=== PATIENT | male | born 1940 | race Caucasian/White ===

== ENCOUNTER 2018-05-09 17:00 | Outpatient (REF) | payer MEDICARE, OTHER, SELFPAY ==
[2018-05-09 18:31] LABS: HCT 44.1 % (40.0-50.0); HGB 15.1 g/dL (13.5-17.5)
[2018-05-09 18:50] LABS: Hemoglobin A1C 8.2 % (4.5-6.2)
[2018-05-09 18:51] LABS: ALT 25 U/L (12-78); AST 12 U/L (15-37); Albumin 3.9 g/dL (3.4-5.0); Alkaline Phosphatase 92 U/L (46-116); Anion Gap 5.2 mmol/L (3-11); BUN 20 mg/dL (7-18); Bilirubin, Total 0.2 mg/dL (0.2-1.0); C-Reactive Protein 0.46 mg/dL (0.0-0.3); CO2 29.8 mmol/L (21.0-32.0); CREATININE 1.19 mg/dL (0.70-1.30); Calcium 8.8 mg/dL (8.5-10.1); Chloride 100 mmol/L (98-107); Creatine Kinase 194 U/L (39-308); Estimated GFR 59.12 (mL/min/1.73m2); Glucose 152 mg/dL (70-100); Magnesium 1.7 mg/dL (1.8-2.4); NT-proBNP 96 pg/mL; Potassium 4.2 mmol/L (3.5-5.1); Sodium 135 mmol/L (136-145); Total Protein 7.4 g/dL (6.4-8.2)
[2018-05-09 19:09] LABS: Cholesterol 143 mg/dL (50-200); HDL Cholesterol 39 mg/dL (40-60); LDL CHOLESTEROL 81 mg/dL (<100); Triglyceride 165 mg/dL (30-150)
== END 2018-05-09 17:01 ==
LOC: NCHCN 17:00
PROVIDERS: PCP Family Medicine; Visit Provider Family Medicine
DX: E11.9 Type 2 diabetes mellitus without complications (principal); R06.09 Other forms of dyspnea; E78.5 Hyperlipidemia, unspecified; I10 Essential (primary) hypertension; R60.0 Localized edema; R07.89 Other chest pain
CPT/HCPCS: 80053; 80061; 82550; 83721; 83036; 83735; 83880; 85014; 85018; 86140

== ENCOUNTER 2018-06-17 01:18 | Outpatient (CLI) | payer MEDICARE, OTHER, SELFPAY ==
--- NOTE | 2018-06-17 07:39 | DI.US_ITS ---
SYMPTOMS/DIAGNOSIS: SMOKER, F17.210, HYPERTENSION, ? AAA ABDOMINAL AORTIC ULTRASOUND: Sonographic evaluation of the abdominal aorta was performed. There is no evidence of an abdominal aortic aneurysm. Maximum diameter of the abdominal aorta is seen proximally and measures 2.9 cm. IMPRESSION: No evidence of an abdominal aortic aneurysm.
== END 2018-06-17 01:38 ==
PROVIDERS: PCP Family Medicine; Visit Provider Family Medicine
DX: F17.210 Nicotine dependence, cigarettes, uncomplicated (principal); I10 Essential (primary) hypertension; Z13.6 Encounter for screening for cardiovascular disorders
CPT/HCPCS: 76706

== ENCOUNTER 2018-06-20 00:28 | Outpatient (CLI) | payer MEDICARE, OTHER, SELFPAY ==
--- NOTE | 2018-06-20 09:40 | MERGE_ITS ---
*[facility]* *[facility]* [address] [place] [address] Date of study: 06/20/2018 Transthoracic Echocardiography M-mode, complete 2D, complete spectral Doppler, and color Doppler *STUDY CONCLUSIONS* Summary: 1. Left ventricle: The cavity size was normal. Wall thickness was increased in a pattern of mild LVH. Systolic function was at the lower limits of normal. The estimated ejection fraction was 50-55%. Wall motion was normal; there were no regional wall motion abnormalities. 2. Mitral valve: There was mild regurgitation. 3. Left atrium: The atrium was mildly dilated. 4. Right ventricle: The cavity size was normal. Wall thickness was normal. Systolic function was normal. 5. Pulmonary arteries: Pulmonary systolic pressure was at the upper limits of normal. PA peak pressure: 31mm Hg (S). *PATIENT PRESENTATION* Height: 172.7cm ((68in) ) S/D Pressure: 135 / 66 Weight: 86.2kg ((189.6lb) ) BSA: 2.05m^2 Test start time: 09:50 AM. Test stop time: 10:37 AM. ORDERING Yasmin Hilliard REFERRING Yasmin Hilliard PERFORMING Unknown PERFORMING [facility] PARALEGAL RT Stephanie (R)(CHARLIE), CARLOS *PROCEDURE DATA* Procedure information: The patient was identified by two identifiers. This study was interpreted by [facility]. Pertinent images and digital data are archived for permanent storage and are available for subsequent review. No prior study was available for comparison. Study status: Routine. Transthoracic echocardiography. M-mode, complete 2D, complete spectral Doppler, and color Doppler. A Transthoracic Echocardiogram was performed. Scanning was performed from the parasternal, apical, subcostal, and suprasternal notch acoustic windows. Images were obtained using an [id number] cardiac ultrasound machine. Image quality was adequate. Study completion: The patient tolerated the procedure well. History: PMH: DUCKWORTH, lower limb edema, chest discomfort. *CARDIAC ANATOMY* Left ventricle: The cavity size was normal. Wall thickness was increased in a pattern of mild LVH. Systolic function was at the lower limits of normal. The estimated ejection fraction was 50-55%. Wall motion was normal; there were no regional wall motion abnormalities. Some parameters suggest diastolic dysfunction. Aortic valve: Trileaflet; normal thickness leaflets. Mobility was not restricted. Doppler: Transvalvular velocity was within the normal range. There was no stenosis. There was no significant regurgitation. VTI ratio of LVOT to aortic valve: 0.61. Valve area (VTI): 1.8cm^2. Indexed valve area (VTI): 0.9cm^2/m^2. Peak velocity ratio of LVOT to aortic valve: 0.83. Valve area (Vmax): 2.5cm^2. Indexed valve area (Vmax): 1.2cm^2/m^2. Mean velocity ratio of LVOT to aortic valve: 0.88. Valve area (Vmean): 2.6cm^2. Indexed valve area (Vmean): 1.3cm^2/m^2. Mean gradient (S): 4.3mm Hg. Peak gradient (S): 7.5mm Hg. Aorta: Aortic root: The aortic root was normal in size. Mitral valve: Mildly thickened leaflets. Mobility was not restricted. Doppler: Transvalvular velocity was within the normal range. There was no evidence for stenosis. There was mild regurgitation. Valve area by pressure half-time: 3.9cm^2. Indexed valve area by pressure half-time: 1.9cm^2/m^2. Left atrium: The atrium was mildly dilated. Right ventricle: The cavity size was normal. Wall thickness was normal. Systolic function was normal. Pulmonic valve: Poorly visualized. Doppler: Transvalvular velocity was within the normal range. There was no evidence for stenosis. There was no significant regurgitation. Peak gradient (S): 4.5mm Hg. Tricuspid valve: Structurally normal valve. Doppler: Transvalvular velocity was within the normal range. There was no evidence for stenosis. There was mild regurgitation. Pulmonary artery: Pulmonary systolic pressure was at the upper limits of normal. Right atrium: The atrium was normal in size. Pericardium: A prominent pericardial fat pad was present. There was no pericardial effusion. Systemic veins: Inferior vena cava: Well visualized. The vessel was patent and normal in size. The respirophasic diameter changes were in the normal range (greater than or equal to 50%). Measurements Left ventricle Value Reference LV ID, ED, PLAX 4.4 cm 3.5 - 6.0 LV ID, ES, PLAX 3.3 cm 2.1 - 4.0 LV PW thickness, ED, PLAX 1.2 cm LV end-diastolic volume, 1-p A2C 94 ml LV ejection fraction, 1-p A2C 48 % LV end-diastolic volume, 1-p A4C 51 ml LV ejection fraction, 1-p A4C 48 % LV e', lateral 0.08 m/sec LV E/e', lateral 9 LV e', medial 0.086 m/sec LV E/e', medial 8 LV e', average 0.083 m/sec LV E/e', average 8 Ventricular septum Value Reference IVS thickness, ED, PLAX 1.2 cm LVOT Value Reference LVOT ID, A-P 2.0 cm LVOT area 3 cm^2 LVOT peak velocity, S 1.13 m/sec LVOT mean velocity, S 0.87 m/sec LVOT VTI, S 20.2 cm LVOT peak gradient, S 5.2 mm Hg LVOT mean gradient, S 3.3 mm Hg Stroke volume (SV), LVOT DP 61 ml Stroke index (SV/bsa), LVOT DP 29 ml/m^2 Aortic valve Value Reference Aortic valve peak velocity, S 1.4 m/sec Aortic valve mean velocity, S 0.99 m/sec Aortic valve VTI, S 33.0 cm Aortic mean gradient, S 4.3 mm Hg Aortic peak gradient, S 7.5 mm Hg VTI ratio, LVOT/AV 0.61 Aortic valve area, VTI 1.8 cm^2 Velocity ratio, peak, LVOT/AV 0.83 Aortic valve area, peak velocity 2.5 cm^2 Velocity ratio, mean, LVOT/AV 0.88 Aortic valve area, mean velocity 2.6 cm^2 Aortic valve area/bsa, mean velocity 1.3 cm^2/m^2 Aorta Value Reference Aortic root ID, ED 3.2 cm Ascending aorta ID, A-P, S 3.2 cm RVOT Value Reference RVOT VTI, S 20.7 cm Left atrium Value Reference LA ID, A-P, ES 3.3 cm LA ID/bsa, A-P 1.6 cm/m^2 <=2.2 LA area, ES, A4C 22.1 cm^2 8.8 - 23.4 LA area, ES, A2C 17 cm^2 LA volume/bsa, ES, 1-p A4C 35 ml/m^2 LA volume, ES, 2-p 51 ml LA volume/bsa, ES, 2-p 25 ml/m^2 LA/aortic root ratio 1.04 Mitral valve Value Reference Mitral E-wave peak velocity 0.7 m/sec Mitral A-wave peak velocity 0.87 m/sec Mitral deceleration time 193 ms 150 - 230 Mitral pressure half-time 56 ms Mitral E/A ratio, peak 0.8 Mitral valve area, PHT, DP 3.9 cm^2 Pulmonary veins Value Reference Pulmonary vein peak velocity, S 0.55 m/sec Pulmonary vein peak velocity, D 0.39 m/sec Pulmonary vein velocity ratio, peak, 1.41 S/D Pulmonary vein A-wave reversal peak 0.36 m/sec velocity Pulmonary vein A-wave reversal 178 ms duration Pulmonary arteries Value Reference PA pressure, S, DP (H) 31 mm Hg <=30 Tricuspid valve Value Reference Tricuspid regurg peak velocity 2.5 m/sec Tricuspid peak RV-RA gradient 25.7 mm Hg Right atrium Value Reference RA area, ES, A4C 13.8 cm^2 8.3 - 19.5 Systemic veins Value Reference Estimated CVP 10 mm Hg Right ventricle Value Reference RV pressure, S, DP (H) 36 mm Hg <=30 Pulmonic valve Value Reference Pulmonic peak gradient, S 4.5 mm Hg Legend: (L) and (H) wilder values outside specified reference range. I have personally reviewed the images and have reviewed and edited the reported findings. Electronically signed by Aurora Bloom 06/22/2018 13:08
== END 2018-06-20 00:48 ==
PROVIDERS: PCP Family Medicine; Visit Provider Family Medicine
DX: R07.89 Other chest pain (principal); R06.09 Other forms of dyspnea; R60.0 Localized edema; I34.0 Nonrheumatic mitral (valve) insufficiency
CPT/HCPCS: 93306

== ENCOUNTER 2018-07-03 00:09 | Outpatient (CLI) | payer MEDICARE, OTHER, SELFPAY ==
[2018-07-03 13:04] LABS: CREATININE 1.08 mg/dL (0.70-1.30)
--- NOTE | 2018-07-03 13:27 | DI.CT_ITS ---
SYMPTOMS/DIAGNOSIS: CHEST DISCOMFORT, R07.[address]: CT examination of the chest was performed with a bolus infusion of 100 cc's of Omnipaque 350. Images obtained through the upper abdomen show unremarkable appearance of visualized portions of the liver, spleen, pancreas, gallbladder, bile ducts, adrenals and kidneys. There is central lobular emphysema most prominent in the upper lobes. Slight prominence of pulmonary interstitial markings noted particularly in the lung bases. Tiny calcified granuloma noted in right mid lung. No other nodule or mass seen. No consolidation. The tracheobronchial tree appears intact. No mediastinal or hilar adenopathy. No evidence of pulmonary embolic disease. No thoracic aortic dissection or aneurysm. No pleural effusion or pleural based mass. CONCLUSION: Emphysematous changes most prominent in the upper pulmonary lobes. No other significant findings.
[2018-07-03] MEDS: Omnipaque 350 MG/ML 100 ML BTL 70 ML IJ (13:38)
== END 2018-07-03 00:29 ==
PROVIDERS: PCP Family Medicine; Visit Provider Family Medicine
DX: R07.89 Other chest pain (principal); Z13.89 Encounter for screening for other disorder; J43.9 Emphysema, unspecified
CPT/HCPCS: 36415; 71260; 82565; J3490

== ENCOUNTER 2019-04-06 12:12 | Outpatient (REF) | payer MEDICARE, OTHER, SELFPAY ==
[2019-04-06 21:27] LABS: ALT 32 U/L (12-78); AST 15 U/L (15-37); Albumin 3.8 g/dL (3.4-5.0); Alkaline Phosphatase 93 U/L (46-116); Anion Gap 9.5 mmol/L (3-11); BUN 18 mg/dL (7-18); Bilirubin, Total 0.2 mg/dL (0.2-1.0); CO2 26.5 mmol/L (21.0-32.0); CREATININE 1.06 mg/dL (0.70-1.30); Calcium 9.2 mg/dL (8.5-10.1); Calculated LDL 94 mg/dL; Chloride 100 mmol/L (98-107); Cholesterol 175 mg/dL (50-200); Glucose 204 mg/dL (70-100); HDL Cholesterol 34 mg/dL (40-60); Potassium 4.9 mmol/L (3.5-5.1); Sodium 136 mmol/L (136-145); Total Protein 7.3 g/dL (6.4-8.2); Triglyceride 239 mg/dL (30-150)
== END 2019-04-06 12:32 ==
LOC: NCHCN 12:12
PROVIDERS: PCP Family Medicine; Visit Provider Physician Assistant Medical
DX: E11.9 Type 2 diabetes mellitus without complications (principal)
CPT/HCPCS: 80053; 80061; 83721

== ENCOUNTER 2020-01-12 12:02 | Outpatient (REF) | payer OTHER, SELFPAY ==
[2020-01-12 19:20] LABS: HCT 46.4 % (40.0-50.0); HGB 15.8 g/dL (13.5-17.5); Mean Corp. HGB Concentration 34.1 g/dL (32.0-36.0); Mean Corpuscular Hemoglobin 30.3 pg (27.0-33.0); Mean Corpuscular Volume 89.1 fL (80-95); Mean Platelet Volume 10.3 fL (8.0-11.0); Platelet Count 406 x1000/uL (130-400); RBC 5.21 m/cumm (4.50-6.00); RBC Distribution Width 12.9 % (11.8-14.1); White Blood Cell Count 10.62 k/cumm (4.4-10.8)
[2020-01-12 19:38] LABS: ALT 53 U/L (16-63); AST 18 U/L (15-37); Alkaline Phosphatase 113 U/L (46-116); BUN 15 mg/dL (7-18); Bilirubin, Total 0.3 mg/dL (0.2-1.0); CREATININE 1.14 mg/dL (0.70-1.30); Calcium 9.1 mg/dL (8.5-10.1); Chloride 100 mmol/L (98-107); Glucose 221 mg/dL (74-106); Potassium 5.2 mmol/L (3.5-5.1); Sodium 136 mmol/L (136-145); Total Protein 7.6 g/dL (6.4-8.2)
[2020-01-12 19:44] LABS: Hemoglobin A1C 8.6 % (3.8-5.6)
[2020-01-12 19:54] LABS: Bilirubin Negative (Negative); Blood Large (Negative); Clarity Clear (Clear); Glucose >=1000 mg/dL (Negative); Ketones Negative (Negative); Leukocyte Esterase Negative (Negative); Nitrite Negative (Negative); Specific Gravity 1.025 (1.005-1.025); Urobilinogen 0.2 EU/dL (Up TO 0.2); pH 5.5 (5-8)
[2020-01-12 20:11] LABS: C & S Indicated? C&S Done As Ordered
[2020-01-12 20:14] LABS: Bacteria Negative HPF (Negative); Casts Negative LPF (Negative); Crystals Negative HPF (Negative); Epithelial Cells Negative HPF (Negative); Mucus Negative (Negative); Other Cells Negative (Negative); RBC >50 HPF (0-2); WBC Negative HPF (0-5)
== END 2020-01-12 12:22 ==
LOC: NCHCN 12:02
PROVIDERS: PCP Family Medicine; Visit Provider Family Medicine
DX: R10.32 Left lower quadrant pain (principal); E11.9 Type 2 diabetes mellitus without complications; I10 Essential (primary) hypertension
CPT/HCPCS: 80053; 85027; 81003; 81015; 83036; 87086

== ENCOUNTER 2020-02-26 09:07 | Outpatient (CLI) | payer OTHER, SELFPAY ==
[2020-02-28 10:39] LABS: COVID-19 RT-PCR Result NEGATIVE (Negative)
== END 2020-02-26 09:27 ==
PROVIDERS: PCP Family Medicine; Visit Provider Physician Assistant Medical
DX: Z11.59 Encounter for screening for other viral diseases (principal)
CPT/HCPCS: U0003

== ENCOUNTER 2020-07-05 17:08 | Outpatient (REF) | payer OTHER, SELFPAY ==
[2020-07-09 02:29] LABS: Patient Race White; SARS-CoV-2 RNA Undetected (Undetected); SARS-CoV-2 Specimen Source Nasal
== END 2020-07-05 17:28 ==
LOC: NCHCN 17:08
PROVIDERS: PCP Family Medicine; Visit Provider Nurse Practitioner Family
DX: R05 Cough (principal)
CPT/HCPCS: U0003

== ENCOUNTER 2021-05-02 18:46 | Outpatient (REF) | payer OTHER, SELFPAY ==
[2021-05-02 19:29] LABS: HCT 46.6 % (40.0-50.0); HGB 15.4 g/dL (13.5-17.5); MCH 29.9 pg (27.0-33.0); MCV 90.5 fL (80-95); MPV 10.7 fL (8.0-11.0); Platelet Count 359 10^3/uL (130-400); RBC 5.15 10^6/uL (4.36-5.78); RDW 12.3 % (11.8-14.1); RDW-SD 41.2 fL; WBC 15.38 10^3/uL (4.4-10.8)
[2021-05-02 19:35] LABS: ALT 32 U/L (16-63); AST 15 U/L (15-37); Albumin 3.8 g/dL (3.4-5.0); Alkaline Phosphatase 86 U/L (46-116); Anion Gap 12.6 mmol/L (3-11); BUN 25 mg/dL (7-18); Bilirubin, Total 0.3 mg/dL (0.2-1.0); CO2 23.4 mmol/L (21.0-32.0); CREATININE 1.1 mg/dL (0.70-1.30); Calcium 9.1 mg/dL (8.5-10.1); Chloride 101 mmol/L (98-107); Glucose 241 mg/dL (74-106); Potassium 4.9 mmol/L (3.5-5.1); Sodium 137 mmol/L (136-145); Total Protein 7.2 g/dL (6.4-8.2)
[2021-05-04 18:54] LABS: Fructosamine 299 mcmol/L (200 - 285)
== END 2021-05-02 18:47 | disposition home or self-care (01) ==
LOC: NCHCN 18:46
PROVIDERS: PCP Family Medicine; Visit Provider Family Medicine
DX: E11.9 Type 2 diabetes mellitus without complications (principal); R19.7 Diarrhea, unspecified; I10 Essential (primary) hypertension; E78.5 Hyperlipidemia, unspecified
CPT/HCPCS: 80053; 85027; 82985

== ENCOUNTER → 2022-02-13 00:21 | Outpatient (CLI) | payer OTHER, SELFPAY ==
--- NOTE | 2022-02-13 11:00 | DI.NM_ITS ---
APPROVED REPORT Exam: Pharmacologic Patient Location: Out-Patient Room/Bed: Stress Nurse: Aurelia Her RN Ordering Provider:LILIAN CLARK, Contact Number: [phone] BMI: 29.59 Baseline Rhythm: Sinus Bradycardia Comment: Baseline ST abnormalities V2 and V3, PVCs, bigeminy Indications: Chest discomfort, DM type II, smoker Medical History Medical History: Hypertension, hyperlipidemia, diabetes type II, smoker (current), COPD, hx of falls and vertigo Cardiac Medications: Aspirin, atenolol, omeprazole, simvastatin, furosemide, losartan, metformin Allergies: NKDA Cardiac Risk Factors: Hypertension, hyperlipidemia, diabetes type II, smoker (current daily), COPD, f amily hx Previous Cardiac Procedures: None Pretest Chest Pain Characteristics: None Exercise History: Sedentary Physical Disabilities: hips, hx of falls and vertigo, gait unsteady Lung Sounds: Diminished lower lobes Heart Sounds: Regular Stress Test Details Test: Pharmacologic stress was paired with low level exercise. Reason for pharmacologic stress test: physical limitation. Nuclear Acquisition: Rest Tc-99m/Stress Tc-99m 1 day Rest Isotope: Tc-99m Sestamibi. Dose: 9.7 Date: 02/13/2022 Injection Time: 1120 Stress Isotope: Tc-99m Sestamibi. Dose: 30.3 Date: 02/13/2022 Injection Time: 1332 HR Resting HR Supine: 54 bpm Max Heart Rate (APMHR): 139.838674 bpm Resting HR Standin bpm Target HR (85% APMHR): 118.708511 bpm Max HR Achieved: 96 bpm % of APMHR: 69.06 Recovery HR: 62 bpm Comment: Atenolol not held prior to test BP Resting BP Supine: 168/72 mmHg Resting BP Standin/70 mmHg Max BP: 198/70 mmHg Recovery BP: 174/78 mmHg BP response to stress: Blunted blood pressure response to stress. ECG Resting ECG: Sinus Bradycardia Ectopy: Frequent PVCs, bigeminy Comment: Baseline ST abnormalities V2 and V3 Stress ECG: Sinus Rhythm ST Change: No significant ST segment changes noted, Nondiagnostic low heart rate Arrhythmia: Frequent PVCs, bigeminy Recovery ECG: Sinus Rhythm Recovery ST Change: No significant ST segment changes noted, Nondiagnostic low heart rate Recovery Arrhythmia: Frequent PVCs, bigeminy Clinical Stress Symptoms: General Fatigue, Dyspnea, Leg Fatigue Exercise capacity: 1.38 METs Angina Score: None Rate Pressure Product: 75032 Stress ECG Conclusion 1. Resting electrocardiogram was within normal limits 2. The patient underwent exercise testing with low-level exercise and pharmacologic stress with regad enoson 3. Electrocardiographic portion of the test was nondiagnostic due to inadequate heart rate. Peak hea rt rate achieved was 69% of predicted for age 4. Ventricular ectopy was noted 5. See MPI report Stress Test Summary STAGE HR BP Symptoms NOTES Supine 54 168/72 SpO2 95% 1 min post Lexiscan injection 92 190/80 SpO2 96% Moderate SOB 3 min post Lexiscan injection 81 198/70 SpO2 98% Mild SOB 6 min post Lexiscan injection 62 174/78 SpO2 97% SOB resolved Pharmacologic stress was paired with low level exercise due to physical limitations. Patient ambulate d on treadmill at 0.5mph and 0% grade during Regadenoson administration. Tolerated testing well. MPI Conclusion Myocardial perfusion is normal. There is no evidence of ischemia or prior infarction EF 45%, normal wall motion Radiologist Interpretation Radiologist agrees with Jig Hand's Interpretation. Radiologist Interpretation by: Caitlyn Salmon MD Interpretation Date/Time: 02/13/2022 17:02:00
[2022-02-13] MEDS: Regadenoson 0.4 MG/5 ML SYR IVP (13:47)
== END ==
PROVIDERS: PCP Family Medicine; Visit Provider Family Medicine
DX: R07.89 Other chest pain (principal); E11.9 Type 2 diabetes mellitus without complications; F17.210 Nicotine dependence, cigarettes, uncomplicated
CPT/HCPCS: 78452; 93016; 93018; 93017; J2785

== ENCOUNTER 2022-03-02 16:11 | Outpatient (REF) | payer MEDICARE, SELFPAY ==
[2022-03-02 19:15] LABS: ALT 27 U/L (16-63); AST 20 U/L (15-37); Albumin 3.8 g/dL (3.4-5.0); Alkaline Phosphatase 75 U/L (46-116); Anion Gap 9.5 mmol/L (3-11); BUN 19 mg/dL (7-18); Bilirubin, Total 0.2 mg/dL (0.2-1.0); CO2 26.5 mmol/L (21.0-32.0); CREATININE 1.2 mg/dL (0.70-1.30); Calcium 9.3 mg/dL (8.5-10.1); Chloride 103 mmol/L (98-107); Estimated GFR 58.11 (mL/min/1.73m2); Glucose 113 mg/dL (74-106); Potassium 4.3 mmol/L (3.5-5.1); Sodium 139 mmol/L (136-145); Total Protein 7.6 g/dL (6.4-8.2)
== END 2022-03-02 16:12 | disposition home or self-care (01) ==
LOC: NCHCN 16:11
PROVIDERS: PCP Family Medicine; Visit Provider Family Medicine
DX: I10 Essential (primary) hypertension (principal); R31.9 Hematuria, unspecified
CPT/HCPCS: 80053; 87086

== ENCOUNTER 2022-03-22 11:25 | Emergency (ER) | payer MEDICARE, SELFPAY ==
[2022-03-22 12:03] VITALS: BP 162/74; PULSE 72; RESP 16; TEMP 36.7; O2SAT 97
--- NOTE | 2022-03-22 12:15 | DI.CT_ITS ---
Exam(s) CT ABDOMEN PELVIS WO EXAM: CT ABDOMEN PELVIS WO CLINICAL HISTORY: gross hematuria one month. TECHNIQUE: Imaging Protocol: Axial computed tomography images with coronal and sagittal reformatted images were created and reviewed. Delete FINDINGS: ABDOMEN: Lung Bases: There is a calcified granuloma in the right middle lobe. Coronary artery calcifications are present. Liver: Normal density. No measurable mass. Gallbladder and biliary tract: No radiodense calculus or biliary ductal dilation. Pancreas: Normal density, no abnormal calcifications or inflammatory process. Spleen: Normal. Kidneys: Normal size, contour and axis.No radiodense stones or obstructive uropathy. Single subcentim eter hypodensities are seen in each kidney. They are too small for further characterization on this noncontrast examination. They may represent cysts. Adrenal glands: No mass is seen. Lymph nodes: Within normal limits. Abdominal Aorta: Abdominal portion non-dilated. Extensive atherosclerosis. PELVIS: Bladder:There is a lobulated soft tissue density along the posterior wall of the urinary bladder. Th ere does appear to be some communication with the of posterior wall and a bladder mass cannot be excl uded. A clot should also be considered. There is mild irregular thickening of the urinary bladder w all inferiorly and anteriorly. This is best appreciated on the lateral view. Bowel: No obstruction or bowel wall thickening. Appendix is unremarkable. There are few scattered di verticula in the sigmoid colon but no evidence of acute diverticulitis. Peritoneal cavity: No ascites, collection or mesenteric inflammatory response. No free air. Reproductive organs: The prostate gland is enlarged. Bones: Within normal limits. Soft Tissues: There are bilateral fat containing inguinal hernia. IMPRESSION: 1. Soft tissue density along the posterior aspect of the urinary bladder. There is irregular bladder wall thickening inferiorly and anteriorly. The possibility of a bladder mass should be considered. Clots in the urinary bladder may also have this appearance. Urologic consult is recommended for fur ther evaluation. 2. No evidence of nephrolithiasis or hydronephrosis. 3. Enlarged prostate gland 4. Results of this exam have been verbally communicated with provider. RADIATION DOSE DELIVERED: 866.78mGy.cm Total DLP DATA REPOSITORY: All CT scans at this facility are submitted to the National Radiology Data Registry (NRDR) Dose Index Registry (DIR) with the [employer] (A[employer]). RADIATION OPTIMIZATION: All CT scans at this facility use at least one of these dose optimization te chniques: automated exposure control; mA and/or kV adjustment per patient size (includes targeted exa ms where dose is matched to clinical indication); or iterative reconstruction.
[2022-03-22 12:37] LABS: Bilirubin Negative (Negative); Blood Large (Negative); Clarity Cloudy (Clear); Glucose Negative (Negative); Ketones Negative (Negative); Leukocyte Esterase Negative (Negative); Nitrite Negative (Negative); Specific Gravity 1.015 (1.005-1.025); Urobilinogen 0.2 EU/dL (Up TO 0.2)
[2022-03-22 12:40] LABS: Bacteria Negative HPF (Negative); C & S Indicated? No; Crystals Negative HPF (Negative); Epithelial Cells Few HPF (Negative); Mucus Negative (Negative); RBC >50 HPF (0-2); WBC Negative HPF (0-5)
[2022-03-22 13:29] VITALS: BP 140/77; PULSE 74; RESP 17; TEMP 36.9; O2SAT 97
[2022-03-22 13:42] LABS: Abs Immature Grans 0.03 10^3/uL (0.0-0.06); Absolute Basophil Count 0.12 10^3/uL (0.0-0.2); Absolute Lymphocyte Count 3.15 10^3/uL (1.2-3.4); Eosinophils % 9.1; HCT 43.9 % (40.0-50.0); HGB 14.7 g/dL (13.5-17.5); Immature Grans % 0.2; MCH 30.7 pg (27.0-33.0); MCHC 33.5 % (32.0-36.0); MCV 92 fL (80-95); MPV 9.9 fL (8.0-11.0); Monocytes % 9.2; Neutrophils % 54.5; Platelet Count 389 10^3/uL (130-400); RBC 4.79 10^6/uL (4.36-5.78); RDW 12.3 % (11.8-14.1); WBC 12.11 10^3/uL (4.4-10.8)
[2022-03-22 13:44] LABS: Absolute Monocyte Count 1.11 10^3/uL (0.1-0.8)
--- NOTE | 2022-03-22 14:08 | ED.GENADUL_ITS ---
Discharge Plan Disposition Patient Disposition: HOME Condition: Stable Discharge Details Clinical Impression: Hematuria, Mass of bladder Primary Care Provider: Yasmin Hilliard V ED Provider: Gris Roberts Home Meds and New Rx's Prescriptions: Continued simvastatin 20 MG tablet 20 mg PO DAILY atenolol 50 MG tablet 50 mg PO BID magnesium L-lactate [Magtab] 84 MG tablet extended release 84 mg PO DAILY Qty: 30 11RF meclizine 12.5 mg tablet 12.5 tab PO PRN PRN Label Comments: Take 1 tablet by mouth twice a day as needed omeprazole 20 mg capsule,delayed release(DR/EC) 20 cap PO BID Label Comments: TAKE 1 CAPSULE BY MOUTH TWICE DAILY Trulicity 0.75 mg/0.5 mL pen injector SUBCUT Label Comments: Inject 1 pen injector subcutaneously once a week inject subcutaneously once a week ( stay on same dosing for now) No Action aspirin 81 mg capsule 81 mg PO DAILY furosemide [Lasix] 20 mg tablet 20 mg PO DAILY tamsulosin [Flomax] 0.4 mg capsule 0.4 mg PO DAILY losartan 25 mg tablet 25 mg PO DAILY metformin 500 mg tablet 1,000 mg PO BID glipizide 10 mg tablet extended release 24hr 10 tab PO DAILY Label Comments: TAKE 1 TABLET BY MOUTH TWICE DAILY Discharge Instructions Instructions: Hematuria (ED) Additional Instructions: Increase your fluid intake, eight 8 ounce glasses of water daily Please call urology, they will see you on Saturday or Saturday of next week Should you develop inability to urinate, fever, chills, or any worsening pain you must return to the emergency department for reassessment Referrals: Yasmin Hilliard MD [Primary Care Provider] - Scott Arce MD [ [facility] STAFF PHYSICIAN] - Discharge Data Discharge Date/Time-TO BE ENTERED AT DEPARTURE: 03/22/22 15:09 Medical Decision Making Case discussed with Nancy Martin, urology and she does not recommend irrigation She states that if patient is able to urinate which he is he should be encouraged to increase hydration and follow-up closely with urology given his CT findings of mass versus clot in his bladder Patient is able to urinate well He prefers to not have catheter or irrigation He has an appointment tomorrow with urology but she has made aware regarding He is also aware he needs very close follow-up on this mass versus clot on the CT scan There is no evidence of secondary infection Hemodynamically stable He is discharged home in stable condition with stable vital urology follow-up Medical Records Medical records reviewed: Yes I reviewed the patient's medical records. Lab Data Lab results reviewed: Yes I reviewed the patient's lab results. HPI General Date/Time Provider Initiated Documentation: 03/22/22 12:24 . HPI Narrative: This 81-year-old gentleman presents with report of gross hematuria for the past month with clots over the course of the past 3 days. He has been straining to urinate. He denies any weakness or dizziness. He denies any history of coagulopathy. He denies any pain complaints. Denies known history of cancer. Smokes tobacco on a daily basis. Related Data Home Medications Medication Instructions Recorded Confirmed atenolol 50 mg tablet 50 mg PO BID 09/11/17 03/23/22 simvastatin 20 mg tablet 20 mg PO DAILY 09/11/17 03/23/22 magnesium L-lactate 84 mg 84 mg PO DAILY #30 tab-caps 10/16/17 03/23/22 tablet,extended release (Magtab) dulaglutide 0.75 mg/0.5 mL device subcut 03/22/22 03/22/22 subcutaneous pen injector (Trulicity) meclizine 12.5 mg tablet 12.5 tab PO PRN PRN 03/22/22 03/23/22 omeprazole 20 mg capsule,delayed 20 cap PO BID 03/22/22 03/23/22 release aspirin 81 mg capsule 81 mg PO DAILY 03/23/22 03/23/22 furosemide 20 mg tablet (Lasix) 20 mg PO DAILY 03/23/22 03/23/22 glipizide 10 mg tablet, extended 10 tab PO DAILY 03/23/22 03/23/22 release 24 hr losartan 25 mg tablet 25 mg PO DAILY 03/23/22 03/23/22 metformin 500 mg tablet 1,000 mg PO BID 03/23/22 03/23/22 tamsulosin 0.4 mg capsule (Flomax) 0.4 mg PO DAILY 03/23/22 03/23/22 Previous Rx's Medication Instructions Recorded magnesium L-lactate 84 mg 84 mg PO DAILY #30 tab-caps 10/16/17 tablet,extended release (Magtab) Allergies Allergy/AdvReac Type Severity Reaction Status Date / Time lisinopril Allergy Verified 03/23/22 13:33 General Stated Complaint: Urinary ELVIA: 4 Review of Systems All systems reviewed & are unremarkable except as noted in HPI and below PFSH All Active Problems Hematuria (Acute) Mass of bladder (Acute) Hyperlipidemia (Acute) Hypertension (Chronic) Skin lesion (Acute) Visual changes (Acute) Smoker (Acute) Back pain (Acute) Palpitations (Acute) Chest pain (Acute) Pneumonia (Acute) Edema (Acute) Dyspnea on exertion (Acute) BPH (benign prostatic hyperplasia) (Chronic) Hip pain, right (Acute) Situational depression (Acute) Actinic keratoses (Acute) Knee pain (Acute) Hip pain (Acute) Irritation of right eye (Acute) COPD (chronic obstructive pulmonary disease) (Chronic) Vertigo (Acute) Lumbar radiculopathy (Acute) Accidental fall (Acute) Paresthesia (Acute) Hyperglycemia due to diabetes mellitus (Acute) Diarrhea (Acute) Shoulder pain, bilateral (Acute) Runny nose (Acute) Ataxia (Acute) Weakness of both legs (Acute) Hematuria (Acute) Radiculopathy (Acute) Medical History Gait instability Social History Smoking/Tobacco Use Status: Current every day Tobacco Type: cigarettes Smoking risk assessment performed?: Yes Alcohol Intake: current Alcohol Intake frequency: a few times a week Drug use: Never Substance use type: does not use Do you feel safe at home: Yes Do you feel safe in your relationship?: Yes Exam Const General: cooperative, comfortable and no acute distress Resp Effort & Inspection: normal respiratory effort Auscultation: clear to auscultation bilaterally Cardio Rate: regular rate Rhythm: regular rhythm GI Inspection: normal to inspection Other: non tender abdominal and flank exam Skin General skin exam: no rashes or lesions noted Neuro General: patient alert and patient oriented x3 Course Vital Signs Vital signs: Vital Signs Temperature 36.7 C 03/22/22 12:03 Pulse 72 03/22/22 12:03 Respiratory Rate 16 03/22/22 12:03 Blood Pressure 162/74 H 03/22/22 12:03 Pulse Oximetry 97 03/22/22 12:03 Temperature 36.9 C 03/22/22 13:29 Temperature Source Skin 03/22/22 13:29 Pulse 74 03/22/22 13:29 Respiratory Rate 17 03/22/22 13:29 Blood Pressure 140/77 03/22/22 13:29 Blood Pressure Position Sitting 03/22/22 12:03 Pulse Oximetry 97 03/22/22 13:29 Oxygen Delivery Method Room Air 03/22/22 13:29 Oxygen Flow Rate 0 03/22/22 13:29 Pain Level 0 03/22/22 12:03 Lab/Test Results Lab/Test Results: Laboratory Tests Range/Units 03/22/22 03/22/22 12:15 13:35 WBC (4.4-10.8) 10^3/uL 12.11 H RBC (4.36-5.78) 10^6/uL 4.79 Hgb (13.5-17.5) g/dL 14.7 Hct (40.0-50.0) % 43.9 MCV (80-95) fL 92 MCH (27.0-33.0) pg 30.7 MCHC (32.0-36.0) % 33.5 RDW (11.8-14.1) % 12.3 Plt Count (130-400) 10^3/uL 389 MPV (8.0-11.0) fL 9.9 Immature Gran % 0.2 Neutrophils % 54.5 Lymphocytes % 26.0 Monocytes % 9.2 Eosinophils % 9.1 Basophils % 1.0 Nucleated RBC % (0.0-0.3) % 0.0 Absolute Neutrophils (1.2-6.7) 10^3/uL 6.60 Absolute Lymphocytes (1.2-3.4) 10^3/uL 3.15 Absolute Monocytes (0.1-0.8) 10^3/uL 1.11 H Absolute Eosinophils (0.0-0.7) 10^3/uL 1.10 H Absolute Basophils (0.0-0.2) 10^3/uL 0.12 Urine Color (Yellow) Red Urine Clarity (Clear) Cloudy Urine pH (5-8) 6.0 Ur Specific Scalf (1.005-1.025) 1.015 Urine Protein (Negative) mg/dL 100 H Urine Ketones (Negative) mg/dL Negative Urine Blood (Negative) Large H Urine Nitrite (Negative) Negative Urine Bilirubin (Negative) Negative Urine Urobilinogen (Up TO 0.2) EU/dL 0.2 Ur Leukocyte Esterase (Negative) Negative Urine RBC (0-2) HPF >50 H Urine WBC (0-5) HPF Negative Ur Epithelial Cells (Negative) HPF Few Urine Crystals (Negative) HPF Negative Urine Bacteria (Negative) HPF Negative Urine Casts (Negative) LPF 5-10 RBC Urine Mucus (Negative) Negative Ur Culture Indicated? No Urine Glucose (Negative) mg/dL Negative
--- NOTE | 2022-03-22 14:34 | NUR.NOTE ---
Nursing Note: Pt blood redrawn for CMP, results pending for discharge.
[2022-03-22 14:59] LABS: ALT 31 U/L (16-63); AST 17 U/L (15-37); Albumin 4.2 g/dL (3.4-5.0); Alkaline Phosphatase 91 U/L (46-116); Anion Gap 10.9 mmol/L (3-11); BUN 22 mg/dL (7-18); Bilirubin, Total 0.3 mg/dL (0.2-1.0); CO2 26.1 mmol/L (21.0-32.0); CREATININE 1.1 mg/dL (0.70-1.30); Calcium 9.3 mg/dL (8.5-10.1); Chloride 102 mmol/L (98-107); Glucose 123 mg/dL (74-106); Potassium 4.3 mmol/L (3.5-5.1); Sodium 139 mmol/L (136-145); Total Protein 7.8 g/dL (6.4-8.2)
== END 2022-03-22 15:09 | disposition home or self-care (01) ==
PROVIDERS: Emergency Provider Physician Assistant; PCP Family Medicine
DX: R31.0 Gross hematuria (principal); N32.89 Other specified disorders of bladder; F17.210 Nicotine dependence, cigarettes, uncomplicated
CPT/HCPCS: 36415; 80053; 99284; 74176; 81003; 81015; 85025; 99282

== ENCOUNTER → 2022-03-23 10:28 | Outpatient (BNVA) | payer MEDICARE, SELFPAY | PROVIDERS: PCP Family Medicine; Referring Provider Family Medicine; Visit Provider Urology | DX: R31.0 Gross hematuria (principal); R35.1 Nocturia; Z87.891 Personal history of nicotine dependence; Z11.59 Encounter for screening for other viral diseases | CPT/HCPCS: 99215 ==

== ENCOUNTER 2022-03-23 13:27 | Outpatient (REF) | payer MEDICARE, SELFPAY ==
[2022-03-23 13:48] LABS: Source Nasal/Nares
[2022-03-23 16:04] LABS: COVID-19 PCR Negative (Negative)
== END 2022-03-23 13:28 | disposition home or self-care (01) ==
LOC: LBN 13:27
PROVIDERS: PCP Family Medicine; Visit Provider Urology
DX: Z20.822 Contact with and (suspected) exposure to COVID-19 (principal); Z01.818 Encounter for other preprocedural examination
CPT/HCPCS: 87635

== ENCOUNTER 2022-03-26 06:10 | Day surgery (SDC) | payer MEDICARE, SELFPAY ==
[2022-03-26] VITALS (10 sets, daily range): BP systolic 127–182; BP diastolic 62–89; PULSE 66–76; RESP 12–19; TEMP 36.3–36.5; O2SAT 95–98; BMI 29.1
--- NOTE | 2022-03-26 06:45 | DI.RAD_ITS ---
Exam(s) XR RETROGRADE IN OR EXAM: XR RETROGRADE IN OR CLINICAL HISTORY: Hematuria. TECHNIQUE: 2D and realtime digital imaging was performed. COMPARISON: No exams were available for comparison FINDINGS: C-arm fluoroscopy was provided for Dr. Claude skinner performing retrograde procedure. Please see procedure note for details. Fluoro time 26.3 seconds RADIATION DOSE DELIVERED: patrick Hernandez=9.42 mGy
--- NOTE | 2022-03-26 06:48 | W.PM.HP.N ---
Date of service: 03/26/22 Time of Service: 06:48 Assessment and Plan Assessment and plan (1) Hematuria: Status: Acute (2) Mass of bladder: Status: Acute (3) Syncopal episodes: Status: Chronic Assessment and plan: He had what sounds like a syncopal episode yesterday (acute onset and difficulty with speech). He is due for an MRI later this month, but his workup is certainly not complete. He is at an increased risk for an adverse event while under anesthesia. He does have clots in the bladder and nearly went into clot retention last week prompting his ED visit. We will proceed urgently with a cystoscopy and clot evacuation. If there is a large bladder tumor underlying any clot, we will not avoid any extensive TUR bladder tumor. History of Present Illness History of Present Illness Chief Complaint: Gross Hematuria Narrative: This is an 81 year old man who has seen gross blood in his urine over the past month. He presented to the ED last week when he began having clots in the urine. He was evaluated with a noncontrast CT of the abdomen and pelvis. A mass vs clot was identified in his bladder. He presents now for cystoscopy, clot evacuation and possible TURBT Review of Systems Narrative: He had a syncopal episode yesterday but refused to be evaluated in the ED. No fevers or chills Decreased hearing acuity. No vision change or dysphasia Hx diabetes. No thyroid dysfunction Long time smoker - No hemoptysis No chest pain or palpitations No nausea, vomiting, hepatitis, ulcers, jaundice, diarrhea or constipation No seizures or strokes No bleeding disorders or anemia Chronic back pain and arthralgia. No gout PFSH All Active Problems (Updated 03/26/22 @ 07:45 by Scott Arce MD) Syncopal episodes (Chronic) Hematuria (Acute) Mass of bladder (Acute) Hyperlipidemia (Acute) Hypertension (Chronic) Skin lesion (Acute) Visual changes (Acute) Smoker (Acute) Back pain (Acute) Palpitations (Acute) Chest pain (Acute) Pneumonia (Acute) Edema (Acute) Dyspnea on exertion (Acute) BPH (benign prostatic hyperplasia) (Chronic) Hip pain, right (Acute) Situational depression (Acute) Actinic keratoses (Acute) Knee pain (Acute) Hip pain (Acute) Irritation of right eye (Acute) COPD (chronic obstructive pulmonary disease) (Chronic) Vertigo (Acute) Lumbar radiculopathy (Acute) Accidental fall (Acute) Paresthesia (Acute) Hyperglycemia due to diabetes mellitus (Acute) Diarrhea (Acute) Shoulder pain, bilateral (Acute) Runny nose (Acute) Ataxia (Acute) Weakness of both legs (Acute) Hematuria (Acute) Radiculopathy (Acute) Medical History (Updated 03/26/22 @ 07:45 by Scott Arce MD) Gait instability Social History Smoking/Tobacco Use Status: Current every day Tobacco Type: cigarettes Smoking risk assessment performed?: Yes Alcohol Intake: current Alcohol Intake frequency: a few times a week Alcohol type: beer Drug use: Never Substance use type: does not use Do you feel safe at home: Yes Do you feel safe in your relationship?: Yes Meds Allergies and Home Medications Allergies Allergy/AdvReac Type Severity Reaction Status Date / Time lisinopril Allergy Verified 03/23/22 13:33 Home Medications Medication Instructions Recorded Confirmed Type atenolol 50 mg tablet 50 mg PO BID 09/11/17 03/26/22 History simvastatin 20 mg tablet 20 mg PO DAILY 09/11/17 03/26/22 History magnesium L-lactate 84 mg 84 mg PO DAILY #30 tab-caps 10/16/17 03/26/22 Rx tablet,extended release (Magtab) dulaglutide 0.75 mg/0.5 mL device subcut 03/22/22 03/22/22 History subcutaneous pen injector (Trulicity) meclizine 12.5 mg tablet 12.5 tab PO PRN PRN 03/22/22 03/26/22 History omeprazole 20 mg capsule,delayed 20 cap PO BID 03/22/22 03/26/22 History release aspirin 81 mg capsule 81 mg PO DAILY 03/23/22 03/26/22 History furosemide 20 mg tablet (Lasix) 20 mg PO DAILY 03/23/22 03/26/22 History glipizide 10 mg tablet, extended 10 tab PO DAILY 03/23/22 03/26/22 History release 24 hr losartan 25 mg tablet 25 mg PO DAILY 03/23/22 03/26/22 History metformin 500 mg tablet 1,000 mg PO BID 03/23/22 03/26/22 History tamsulosin 0.4 mg capsule (Flomax) 0.4 mg PO DAILY 03/23/22 03/26/22 History Exam Const General: no acute distress Neck Neck: supple Resp Effort & Inspection: normal respiratory effort Auscultation: clear to auscultation bilaterally Cardio Rate: regular rate Rhythm: regular rhythm GI Palpation: soft and no masses Neuro General: patient alert, patient awake and patient oriented x3 Results Labs Result diagrams: 03/26/22 06:59 03/26/22 07:34
--- NOTE | 2022-03-26 07:05 | ANES.PREOP_ITS ---
General Info Date of Service Date Performed: 03/26/22 Height: 5 ft 7 in Weight: 84.4 kg Body Mass Index (BMI): 29.1 Surgical Procedure: Operation Date: 03/26/22 07:40 Proposed Procedure Side Surgeon p Cystoscopy/Retrograde/Clot Evacuation Bilateral Scott Arce MD s Possible Transurethral Resection Bladder Tumor Scott Arce MD Meds Allergies and Home Medications Allergies Allergy/AdvReac Type Severity Reaction Status Date / Time lisinopril Allergy Verified 03/23/22 13:33 Home Medication Medication Instructions Recorded atenolol 50 mg tablet 50 mg PO BID 09/11/17 simvastatin 20 mg tablet 20 mg PO DAILY 09/11/17 magnesium L-lactate 84 mg 84 mg PO DAILY #30 tab-caps 10/16/17 tablet,extended release (Magtab) dulaglutide 0.75 mg/0.5 mL device subcut 03/22/22 subcutaneous pen injector (Trulicity) meclizine 12.5 mg tablet 12.5 tab PO PRN PRN 03/22/22 omeprazole 20 mg capsule,delayed 20 cap PO BID 03/22/22 release aspirin 81 mg capsule 81 mg PO DAILY 03/23/22 furosemide 20 mg tablet (Lasix) 20 mg PO DAILY 03/23/22 glipizide 10 mg tablet, extended 10 tab PO DAILY 03/23/22 release 24 hr losartan 25 mg tablet 25 mg PO DAILY 03/23/22 metformin 500 mg tablet 1,000 mg PO BID 03/23/22 tamsulosin 0.4 mg capsule (Flomax) 0.4 mg PO DAILY 03/23/22 Current Visit Medications: Current Medications Generic Name Dose Route Start Last Admin Trade Name Camiloq PRN Reason Stop Dose Admin Ringer's Solution 1,000 mls @ 80 mls/hr 03/26/22 06:00 IV 04/22/22 23:59 INFUSION JUANITA Cefazolin Sodium/Dextrose 2 gm in 50 mls @ 100 mls/hr 03/26/22 06:00 Ancef Duplex IVPB 04/22/22 23:59 PREOP JUANITA IV Miscellaneous Supplies 1 each 03/26/22 06:00 Iv Access IV 04/22/22 23:59 DIRECTED JUANITA Sodium Chloride 0 ml 03/26/22 06:00 Normal Saline Flush 10 Ml Syr IV 04/22/22 23:59 PRN PRN Sodium Chloride 0 ml 03/26/22 06:00 Normal Saline 10 Ml Vial IJ 04/22/22 23:59 DIRECTED PRN Sterile Water 0 ml 03/26/22 06:00 Water,Injection,Sterile 10 Ml Vial IJ 04/22/22 23:59 DIRECTED PRN PFSH Active Problems Active Problems: Problem Status Onset Code Hematuria R31.9 Mass of bladder N32.89 Hyperlipidemia E78.5 Hypertension I10 Skin lesion L98.9 Visual changes H53.9 Smoker F17.200 Back pain M54.9 Palpitations R00.2 Chest pain R07.9 Pneumonia J18.9 Edema R60.9 Dyspnea on exertion R06.00 BPH (benign prostatic hyperplasia) N40.0 Hip pain, right M25.551 Situational depression F43.21 Actinic keratoses L57.0 Knee pain M25.569 Hip pain M25.559 Irritation of right eye H57.89 COPD (chronic obstructive pulmonary disease) J44.9 Vertigo R42 Lumbar radiculopathy M54.16 Accidental fall W19.XXXA Paresthesia R20.2 Hyperglycemia due to diabetes mellitus E11.65 Diarrhea R19.7 Shoulder pain, bilateral M25.511, M25.512 Runny nose R09.89 Ataxia R27.0 Weakness of both legs R29.898 Hematuria R31.9 Radiculopathy M54.10 Medical History Medical History (Updated 03/26/22 @ 07:45 by Scott Arce MD) Gait instability Medical History Comments:: Pt fell 03/25/22, ambulance called but pt declined. Tobacco Smoking/Tobacco Use Status: Current every day Tobacco Type: cigarettes Alcohol Alcohol Intake: current Alcohol intake frequency: a few times a week Substance Use Substance use: Never Substance use type: does not use Vital Signs and Lab Results Vital Signs Most Recent Vital Signs in EMR: Most Recent Vital Signs Temp Pulse Resp BP Pulse Ox 36.5 C 71 18 127/62 97 03/26/22 06:53 03/26/22 06:53 03/26/22 06:53 03/26/22 06:53 03/26/22 06:53 Point of Care Results Point of Care Results: Finger Stick Blood Glucose 150 03/26/22 07:00 Lab Results Result Diagrams: 03/26/22 08:12 03/26/22 08:12 Blood Type / Crossmatch: No Data to Display Complete Blood Count: White Blood Count 12.11 10^3/uL (4.4-10.8) H 03/22/22 13:35 Red Blood Count 4.79 10^6/uL (4.36-5.78) 03/22/22 13:35 Hemoglobin 13.3 g/dL (13.5-17.5) L 03/26/22 08:12 Hematocrit 41.2 % (40.0-50.0) 03/26/22 08:12 Platelet Count 389 10^3/uL (130-400) 03/22/22 13:35 Complete Metabolic Panel: Sodium Level 139 mmol/L (136-145) 03/26/22 08:12 Potassium Level 4.4 mmol/L (3.5-5.1) 03/26/22 08:12 Chloride Level 104 mmol/L (98-107) 03/26/22 08:12 Carbon Dioxide Level 29.6 mmol/L (21.0-32.0) 03/26/22 08:12 Blood Urea Nitrogen 21 mg/dL (7-18) H 03/26/22 08:12 Creatinine 1.0 mg/dL (0.70-1.30) 03/26/22 08:12 Estimated GFR/1.73 m2 >= 60.00 (mL/min/1.73m2) 03/26/22 08:12 Calcium Level 8.5 mg/dL (8.5-10.1) 03/26/22 08:12 Albumin 3.4 g/dL (3.4-5.0) 03/26/22 08:12 Glucose Level 146 mg/dL (74-106) H 03/26/22 08:12 Liver Function Panel: Alanine Aminotransferase (ALT/SGPT) 25 U/L (16-63) 03/26/22 08: 12 Aspartate Amino Transf (AST/SGOT) 14 U/L (15-37) L 03/26/22 08: 12 Coagulation Panel: No Data to Display Cardiac Panel: No Data to Display Arterial Blood Gas: No Data to Display Venous Blood Gas: No Data to Display Pancreas Panel: No Data to Display Thyroid Panel: No Data to Display Infectious Disease: Coronavirus (COVID-19)(PCR) Negative (Negative) 03/23/22 12:00 Coronavirus 2019 Source Nasal/Nares 03/23/22 12:00 Blood Cultures: No Data to Display Toxicology Panel: No Data to Display Imaging and Studies Imaging and Studies Study information below may be from another EMR and interpreted by another provider. Please see original notes in EMR for more complete details. Stress Test Summary: Stress ECG Conclusion 1. Resting electrocardiogram was within normal limits 2. The patient underwent exercise testing with low-level exercise and pharmacologic stress with regadenoson 3. Electrocardiographic portion of the test was nondiagnostic due to inadequate heart rate. Peak heart rate achieved was 69% of predicted for age 4. Ventricular ectopy was noted 5. See MPI report Echocardiogram Summary: Summary: 1. Left ventricle: The cavity size was normal. Wall thickness was increased in a pattern of mild LVH. Systolic function was at the lower limits of normal. The estimated ejection fraction was 50-55%. Wall motion was normal; there were no regional wall motion abnormalities. 2. Mitral valve: There was mild regurgitation. 3. Left atrium: The atrium was mildly dilated. 4. Right ventricle: The cavity size was normal. Wall thickness was normal. Systolic function was normal. 5. Pulmonary arteries: Pulmonary systolic pressure was at the upper limits of normal. PA peak pressure: 31mm Hg (S). Anesthesia Assessment and Plan Anesthesia History Personal History: No History of Anesthesia Complications Family History: No Family History of Anesthesia Complications Exercise Tolerance Exercise Tolerance: Metabolic Equivalents>4 Cardiac & Pulmonary Exam Cardiac Exam: Normal S1/S2 Heart Sounds Pulmonary Exam: Clear Bilateral Breath Sounds Implantable Cardiac Device Does patient have a Pacemaker or an ICD?: No Airway Exam Known Difficult Airway: No Mallampati Class: 2 Mouth Opening: Normal (> 3cm) Thyromental Distance: Greater than 3 cm Neck Range of Motion: Full ROM Neck Circumference: Thick Teeth Condition: Edentulous ASA Classification ASA Score: ASA 3 Emergency Case?: Yes NPO Status NPO Status: NPO Clears >2 hours, Solids >8 hours Anesthesia Plan Resuscitation Status: Full Code Anesthesia Technique: General Anesthesia Airway Planned: Natural Airway Monitors Used: Standard Monitors Preoperative Comments:: Patient reports that while at a family reunion yesterday he had an event where he had unstable gait, difficulty getting words out, and was lowered to a picnic table by family members. EMS was called, but the patient refused medical care. It is unclear if the patient lost consciousness. The patient has had similar episodes in the past, but have never been witnessed. Dr. Arce is aware of yesterday's episode and deems today's procedure urgent as the patient is having difficulty urinating. The plan is to obtain baseline labs and an EKG. The patient's PCP will be notified, as the patient is scheduled for a MRI on the of this month. EKG: Sinus Rhythm with frequent PVCs
[2022-03-26 08:20] LABS: HCT 41.2 % (40.0-50.0); HGB 13.3 g/dL (13.5-17.5)
[2022-03-26] MEDS: Lactated Ringers 1,000 ML 80 ML IV (08:20)
[2022-03-26 08:37] LABS: ALT 25 U/L (16-63); AST 14 U/L (15-37); Albumin 3.4 g/dL (3.4-5.0); Alkaline Phosphatase 70 U/L (46-116); Anion Gap 5.4 mmol/L (3-11); BUN 21 mg/dL (7-18); Bilirubin, Total 0.5 mg/dL (0.2-1.0); CO2 29.6 mmol/L (21.0-32.0); Calcium 8.5 mg/dL (8.5-10.1); Chloride 104 mmol/L (98-107); Glucose 146 mg/dL (74-106); Potassium 4.4 mmol/L (3.5-5.1); Sodium 139 mmol/L (136-145); Total Protein 6.9 g/dL (6.4-8.2)
--- NOTE | 2022-03-26 08:45 | RT.EKG_ITS ---
APPROVED REPORT Exam: Resting ECG Reason for Exam: syncope Patient Location: O HR:70 bpm ECG Measurements Heart Rate 70 AXIS [place] 184 P 29 QRSd 91 QRS 60 QT 360 T 15 QTc 389 Conclusion Sinus rhythm...normal P axis, V-rate 50- 99 Multiple ventricular premature complexes...V complexes w/ short R-R intervls Borderline T abnormalities, anterior leads...T flat or neg, V2-V4
[2022-03-26] MEDS: ceFAZolin 2 GM/50 ML BAG IVPB (09:21)
[2022-03-26] MEDS: Lidocaine 2% Jelly 6 ML SYR (09:36)
--- NOTE | 2022-03-26 09:53 | BLADDER_PTH ---
PATIENT: Diaz Jaime LOC: [facility] U#:[id number] AGE/SX: 81/M ROOM: RE03/26/[address]: Scott Arce MD : 1940 BED: DIS: 03/26/2022 SPEC #: [id number] RECD: 03/26/22 12:56 STATUS: [place] REQ #: [id number] ANGELIQUE: 03/26/22 09:[address]: Scott Arce DEPT: Surgical Specimen RECD BY: Gris Hardy ENTERED: 03/26/22 12:57 SP TYPE: Bladder OTHR DR: Yasmin Hilliard V Tissues: 1 - BLADDER CURRETTINGS Procedures: IMMUNOPEROXIDASE STAIN GROSS AND MICRO LEVEL 5 Comments: [id number]
[2022-03-26] MEDS: Omnipaque 300 MG/ML 50 ML BTL (09:55)
--- NOTE | 2022-03-26 10:13 | W.PM.DSUDISC ---
Discharge Plan Disposition Patient Disposition: HOME Condition: Good Discharge Details Reason For Visit: HEMATURIA Attending Provider: Scott Arce Primary Care Provider: Yasmin Hilliard V Home Meds and New Rx's Prescriptions: New finasteride 5 mg tablet 5 mg PO DAILY Qty: 30 0RF No Action aspirin 81 mg capsule 81 mg PO DAILY Label Comments: pt reports PCP told him to hold this medication furosemide [Lasix] 20 mg tablet 20 mg PO DAILY tamsulosin [Flomax] 0.4 mg capsule 0.4 mg PO DAILY losartan 25 mg tablet 25 mg PO DAILY metformin 500 mg tablet 1,000 mg PO BID simvastatin 20 MG tablet 20 mg PO DAILY atenolol 50 MG tablet 50 mg PO BID magnesium L-lactate [Magtab] 84 MG tablet extended release 84 mg PO DAILY Qty: 30 11RF Label Comments: 03/26/22 pt unaware he takes this medication glipizide 10 mg tablet extended release 24hr 10 tab PO DAILY Label Comments: Pt reports MD put this tablet on hold on 03/16/22 TAKE 1 TABLET BY MOUTH TWICE DAILY meclizine 12.5 mg tablet 12.5 tab PO PRN PRN Label Comments: Take 1 tablet by mouth twice a day as needed omeprazole 20 mg capsule,delayed release(DR/EC) 20 cap PO BID Label Comments: TAKE 1 CAPSULE BY MOUTH TWICE DAILY Trulicity 0.75 mg/0.5 mL pen injector SUBCUT Label Comments: Inject 1 pen injector subcutaneously once a week inject subcutaneously once a week ( stay on same dosing for now) Discharge Instructions Additional Instructions: may remove wallis catheter prior to discharge as long as outflow remains transparent stay off aspirin for 1 additional week followup with me for pathology results @ 1 to 2 weeks Activity:: Activity as Tolerated Shower/Bathe:: 24 hours Diet:: As Tolerated Discharge Orders Discharge Orders: Discharge Order (Routine); Ordered 03/26/22 Ordered By: Scott Arce DS: Diagnosis Discharge Diagnosis (1) Hematuria: Status: Acute (2) Mass of bladder: Status: Acute (3) Syncopal episodes: Status: Chronic
--- NOTE | 2022-03-26 10:19 | ROE_ITS ---
Date of service: 03/26/22 Time of Service: 10:19 Operative Note Operative Note PRE-OP DIAGNOSIS: Gross hematuria POST-OP DIAGNOSIS: same Bladder tumor prostatic hypertrophy PROCEDURE: Cystoscopy, clot evacuation, TUR bladder tumor, bilateral retrograde pyelogram SURGEON: Scott Arce ANESTHESIA TYPE: General:No Airway Refer to Anesthesia Record ESTIMATED BLOOD LOSS: 50 PATHOLOGY: other (bladder tumor) COMPLICATIONS: None Patient was transported to: same day Patient's condition: stable Implants: 16 croatian wallis catheter with 10 cc sterile water in catheter balloon Indications: This is an 81-year-old gentleman who has been noticing gross painless hematuria over the past month. He had difficulty urinating due to blood clots, so he presented to the emergency department last week. He was ultimately able to pass a few clots, the noncontrast CT scan that was done through the emergency department demonstrated a filling defect in the bladder. It was unclear whether we were dealing with blood clots or a bladder tumor. He presents now for cystoscopy and retrograde pyelogram to complete his hematuria work-up. We will be prepared to remove any blood clots and perform TUR bladder tumor if a small underlying lesion is identified. The patient had a syncopal episode yesterday, so if a large underlying mass is identified, he would need to complete his neurologic work-up before a larger procedure under anesthesia could be accomplished. 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 He was given preoperative IV antibiotics. After successful induction of general anesthesia without intubation, he was placed in the dorsal lithotomy position. His genitalia was prepped and draped. 2% Xylocaine jelly was instilled into the urethra to act as a local anesthetic. A 22 Australian rigid cystoscope was passed through the urethra into the bladder. The urethra and bladder were inspected with the 30 degree lens. The pendulous, bulbar and membranous urethra appeared normal with no strictures. The prostatic urethra showed trilobar enlargement with a fairly prominent median lobe sticking back into the bladder neck. Both ureteral orifices were identified. They appeared normal in location and orientation. Each orifice was cannulated with a 5 Australian access catheter. Retrograde pyelograms were obtained by injecting Omnipaque through the access catheter under fluoroscopic guidance. The ureters and collecting systems appeared normal with no filling defects. The remainder of the bladder was then inspected with a 30 and a 70 degree lens. The bladder was heavily trabeculated with multiple diverticuli present. Up toward the anterior portion of the bladder, just within the bladder neck, a ridge adherent clot was identified. The clot was evacuated with a Faustina syringe. Underneath the clot, there was a necrotic appearing papillary lesion that was oozing blood. No arterial bleeding was identified. We then removed the cystoscope and passed a 24 Australian resectoscope sheath thr ough the urethra into the bladder. Transurethral resection of the necrotic tissue was accomplished using an Sorbent Green resectoscope and bipolar cautery. The resected tissue was evacuated and sent to pathology for permanent section. The base of the resected tissue was then cauterized using the button electrode. The bladder was then filled with irrigant and the resectoscope was removed. A 16 Australian Wallis catheter was passed through the urethra into the bladder. The catheter balloon was inflated with 10 cc of sterile water. The catheter was hand irrigated and the return was a light pink. We will plan on removing the catheter once he is fully awake in the recovery room or back in the day surgery unit. The patient tolerated this procedure well with no complications.
[2022-03-26] MEDS: Ketorolac 15 MG/ML VIAL IVP (10:39)
[2022-03-26] MEDS: fentaNYL 100 MCG/2 ML VIAL IVP ×3 (10:50→11:12)
[2022-03-26] MEDS: Phenazopyridine 200 MG TAB PO (11:19)
--- NOTE | 2022-03-26 12:30 | W.ANESPOSTOP ---
Postoperative Evaluation Date, Time and Location Date Performed: 03/26/22 Time Performed: 12:30 Patient Location: Day Surgery Unit Vital Signs Most Recent Imported Vital Signs: Most Recent Vital Signs Temp Pulse Resp BP Pulse Ox 36.3 C L 69 16 141/80 H 97 03/26/22 11:51 03/26/22 11:51 03/26/22 11:51 03/26/22 11:51 03/26/22 11:51 Pain Score Most Recent Pain Score: Most Recent Pain Score Pain Level 4 03/26/22 11:21 Assessment Mental Status: Awake (Alert & Oriented to Patient Baseline) Airway and Respiratory Function: Patent airway with normal (patient baseline) respiratory exam Cardiovascular Function: Hemodynamically Stable Hydration Status: Adequately Hydrated Nausea & Vomiting: No Nausea or Vomiting Pain: Pt. Denies Any Pain Peripheral Nerve Block: Patient did not receive a nerve block Teaching Patient Teaching: Advised to seek followup for the following concerns (See explanation) (Episode/Fall from 03/25/22, will follow up with PCP and planned MRI in the next few weeks. Both patient and son verbalize understanding.) Concerns: Other
== END 2022-03-26 12:52 | disposition home or self-care (01) ==
PROVIDERS: PCP Family Medicine; Visit Provider Urology
PROC: (CPT 74450; principal; 2022-03-26 07:30)
DX: N32.89 Other specified disorders of bladder (principal); R31.0 Gross hematuria; N40.0 Benign prostatic hyperplasia without lower urinary tract symptoms
CPT/HCPCS: 52500; 52005; 36415; 80053; 74420; 85014; 85018; 88307; 88361; 93005; 93010; J0690; J1885; J2405; J2704; J3010; Q9967

== ENCOUNTER → 2022-03-27 08:20 | Outpatient (BNVA) | payer MEDICARE, SELFPAY | PROVIDERS: PCP Family Medicine; Referring Provider Family Medicine; Visit Provider Urology | DX: N32.89 Other specified disorders of bladder (principal); R31.9 Hematuria, unspecified | CPT/HCPCS: 51798; J1885; 96372 ==

== ENCOUNTER → 2022-04-05 02:30 | Outpatient (CLI) | payer MEDICARE, SELFPAY ==
--- NOTE | 2022-04-05 | DI.MRI_ITS ---
Exam(s) MR BRAIN WO EXAM: MR BRAIN WO CLINICAL HISTORY: WEAKNESS CHAPARRO LEGS, R53.1, ATAXIA, R27.0, VERTIGO, R42 TECHNIQUE: Multiplanar multisequence MRI of the brain was performed. COMPARISON: No exams were available for comparison FINDINGS: VENTRICLES AND EXTRA AXIAL SPACES: Normal in size and morphology for the patient's age. MIDLINE SHIFT: None. CEREBRAL PARENCHYMA: No focus of restricted diffusion to suggest acute infarct. No space-occupying le keya identified. There are few scattered hyperintense foci in the white matter on the T2 and FLAIR im ages suggestive of chronic microvascular ischemic disease. HEMORRHAGE: None. BRAINSTEM/CEREBELLUM: Normal. CALVARIUM: Normal. VISUALIZED PARANASAL SINUSES/MASTOIDS:Clear. APACHE OF LU: Normal flow void. PITUITARY GLAND: Unremarkable. OTHER FINDINGS: None. IMPRESSION: 1. No intracranial mass or acute infarct. 2. Age-appropriate cerebral atrophy and small vessel ischemic disease. DATA REPOSITORY:
--- NOTE | 2022-04-05 12:52 | DI.MRI_ITS ---
Exam(s) MR LUMBAR SPINE WO EXAM: MR LUMBAR SPINE WO CLINICAL HISTORY: WEAKNESS CHAPARRO LEGS, R53.1, RADICULOPATHY, M54.10. TECHNIQUE: Multiplanar multisequence MRI of the Lumbar spine was performed. COMPARISON: No exams were available for comparison FINDINGS: Bones: The last intervertebral disc space is designated the L5/S1 level for the numbering purpose of this examination. The vertebral body heights are well maintained. Alignment is satisfactory. The si gnal characteristics are unremarkable. Cord: The conus tip ends at the L1 level. It is of normal size and signal intensity. T12-L1: No disc herniations or bulges are present. No central spinal canal or neural foraminal stenos is. L1-2: No disc herniations or bulges are present. No central spinal canal or neural foraminal stenosis . L2-3: There is a mild diffuse disc bulge which extends laterally. No significant central spinal gail l stenosis is seen. There is mild bilateral neural foraminal narrowing. L3-4: There is a mild diffuse disc bulge and mild degenerative changes of the facets. There is mild narrowing of the central spinal canal which results. No significant neural foraminal stenosis is pre sent. L4-5: There is a diffuse disc bulge. It extends asymmetrically into the left neural foramen. There are degenerative changes of the facets and hypertrophy of the ligamentum flavum. These all contribut e to cause marked central spinal canal stenosis. There is moderate right and marked left neural fora shelley stenosis. L5-S1: There are degenerative changes of the facets. No significant central spinal canal stenosis is present. Moderately severe right and mild left neural foraminal stenosis is present. Soft tissues: The visualized SI joints and sacrum are well maintained. The paraspinal soft tissues ar e unremarkable. IMPRESSION: 1. Multilevel degenerative changes in the lumbar spine. 2. The findings are most marked at L4-5, where there is marked central spinal canal and left neural f oraminal stenosis and moderate right neural foraminal stenosis. DATA REPOSITORY:
== END ==
PROVIDERS: PCP Family Medicine; Visit Provider Family Medicine
DX: G31.9 Degenerative disease of nervous system, unspecified (principal); M47.816 Spondylosis without myelopathy or radiculopathy, lumbar region; M48.061 Spinal stenosis, lumbar region without neurogenic claudication; R53.1 Weakness; R42 Dizziness and giddiness; M54.10 Radiculopathy, site unspecified
CPT/HCPCS: 70551; 72148

== ENCOUNTER 2022-04-06 18:03 | Outpatient (REF) | payer MEDICARE, SELFPAY | END 2022-04-06 18:04 | disposition home or self-care (01) | LOC: NCHCN 18:03 | PROVIDERS: PCP Family Medicine; Visit Provider Family Medicine | DX: R30.0 Dysuria (principal) | CPT/HCPCS: 87086 ==

== ENCOUNTER → 2022-04-10 14:47 | Outpatient (BNVA) | payer MEDICARE, SELFPAY | PROVIDERS: PCP Family Medicine; Referring Provider Family Medicine; Visit Provider Urology | DX: R30.0 Dysuria (principal); C67.9 Malignant neoplasm of bladder, unspecified | CPT/HCPCS: 99214 ==

== ENCOUNTER → 2022-06-29 07:45 | Outpatient (BNVA) | payer MEDICARE, SELFPAY | PROVIDERS: PCP Family Medicine; Referring Provider Family Medicine; Visit Provider Urology | DX: C67.9 Malignant neoplasm of bladder, unspecified (principal) | CPT/HCPCS: 99213 ==

== ENCOUNTER 2022-07-02 07:19 | Day surgery (SDC) | payer MEDICARE, SELFPAY ==
[2022-07-02 07:20] VITALS: BP 137/64; PULSE 59; RESP 18; TEMP 36.6; O2SAT 97
[2022-07-02] MEDS: Lactated Ringers 1,000 ML 80 ML IV (08:07)
--- NOTE | 2022-07-02 08:08 | W.ANESPRE ---
General Info Date of Service Date Performed: 07/02/22 Height: 5 ft 7.75 in Weight: 85.9 kg Body Mass Index (BMI): 29.0 Surgical Procedure: Operation Date: 07/02/22 08:55 Proposed Procedure Side Surgeon p Cystoscopy w/ possible Transurethral Resection Bladder Tumor Scott Arce MD Meds Allergies and Home Medications Allergies Allergy/AdvReac Type Severity Reaction Status Date / Time lisinopril Allergy Verified 07/02/22 07:37 Home Medication Medication Instructions Recorded atenolol 50 mg tablet 50 mg PO BID 09/11/17 simvastatin 20 mg tablet 20 mg PO DAILY 09/11/17 magnesium L-lactate 84 mg 84 mg PO DAILY #30 tab-caps 10/16/17 tablet,extended release (Magtab) dulaglutide 0.75 mg/0.5 mL 0.75 device subcut DIRECTED 03/22/22 subcutaneous pen injector (Trulicity) meclizine 12.5 mg tablet 12.5 tab PO PRN PRN 03/22/22 omeprazole 20 mg capsule,delayed 20 cap PO BID 03/22/22 release aspirin 81 mg capsule 81 mg PO DAILY 03/23/22 furosemide 20 mg tablet (Lasix) 20 mg PO DAILY 03/23/22 glipizide 10 mg tablet, extended 10 tab PO DAILY 03/23/22 release 24 hr losartan 25 mg tablet 25 mg PO DAILY 03/23/22 metformin 500 mg tablet 1,000 mg PO BID 03/23/22 tamsulosin 0.4 mg capsule (Flomax) 0.4 mg PO DAILY 03/23/22 finasteride 5 mg tablet 5 mg PO DAILY stop prostate 03/26/22 bleeding #90 tabs phenazopyridine 200 mg tablet 200 mg PO TID PRN pain #10 tabs 03/26/22 (Pyridium) Current Visit Medications: Current Medications Generic Name Dose Route Start Last Admin Trade Name Freq PRN Reason Stop Dose Admin Ringer's Solution 1,000 mls @ 80 mls/hr 07/02/22 06:00 07/02/22 08:07 IV 07/29/22 23:59 80 mls/hr INFUSION JUANITA Administration Cefazolin Sodium/Dextrose 2 gm in 50 mls @ 100 mls/hr 07/02/22 06:00 Ancef Duplex IVPB 07/29/22 23:59 PREOP JUANITA IV Miscellaneous Supplies 1 each 07/02/22 06:00 Iv Access IV 07/29/22 23:59 DIRECTED JUANITA Sodium Chloride 0 ml 07/02/22 06:00 Normal Saline Flush 10 Ml Syr IV 07/29/22 23:59 PRN PRN Sodium Chloride 0 ml 07/02/22 06:00 Normal Saline 10 Ml Vial IJ 07/29/22 23:59 DIRECTED PRN Sterile Water 0 ml 07/02/22 06:00 Water,Injection,Sterile 10 Ml Vial IJ 07/29/22 23:59 DIRECTED PRN PFSH Active Problems Active Problems: Problem Status Onset Code Radiculopathy M54.10 Hematuria R31.9 Weakness of both legs R29.898 Ataxia R27.0 Runny nose R09.89 Shoulder pain, bilateral M25.511, M25.512 Diarrhea R19.7 Hyperglycemia due to diabetes mellitus E11.65 Paresthesia R20.2 Accidental fall W19.XXXA Lumbar radiculopathy M54.16 Vertigo R42 COPD (chronic obstructive pulmonary disease) J44.9 Irritation of right eye H57.89 Hip pain M25.559 Knee pain M25.569 Actinic keratoses L57.0 Situational depression F43.21 Hip pain, right M25.551 BPH (benign prostatic hyperplasia) N40.0 Dyspnea on exertion R06.00 Edema R60.9 Pneumonia J18.9 Chest pain R07.9 Palpitations R00.2 Back pain M54.9 Smoker F17.200 Visual changes H53.9 Skin lesion L98.9 Hypertension I10 Hyperlipidemia E78.5 Syncopal episodes R55 Bladder cancer C67.9 Medical History Medical History Diabetes mellitus Gait instability Uses a cane to ambulate Hematuria Medical History Comments:: Pt fell 03/25/22, ambulance called but pt declined. Tobacco Smoking/Tobacco Use Status: Current every day Tobacco Type: cigarettes Alcohol Alcohol Intake: current Alcohol intake frequency: a few times a week Alcohol type: beer Substance Use Substance use: Never Substance use type: does not use Vital Signs and Lab Results Vital Signs Most Recent Vital Signs in EMR: Most Recent Vital Signs Temp Pulse Resp BP Pulse Ox 36.6 C 59 L 18 137/64 97 07/02/22 07:20 07/02/22 07:20 07/02/22 07:20 07/02/22 07:20 07/02/22 07:20 Lab Results Blood Type / Crossmatch: No Data to Display Complete Blood Count: No Data to Display Complete Metabolic Panel: No Data to Display Liver Function Panel: No Data to Display Coagulation Panel: No Data to Display Cardiac Panel: No Data to Display Arterial Blood Gas: No Data to Display Venous Blood Gas: No Data to Display Pancreas Panel: No Data to Display Thyroid Panel: No Data to Display Infectious Disease: No Data to Display Blood Cultures: No Data to Display Toxicology Panel: No Data to Display Imaging and Studies Imaging and Studies Study information below may be from another EMR and interpreted by another provider. Please see original notes in EMR for more complete details. EKG Summary: 03/26/22 Conclusion Sinus rhythm...normal P axis, V-rate 50- 99 Multiple ventricular premature complexes...V complexes w/ short R-R intervls Borderline T abnormalities, anterior leads...T flat or neg, V2-V4 Stress Test Summary: 02/13/22: Stress ECG Conclusion 1. Resting electrocardiogram was within normal limits 2. The patient underwent exercise testing with low-level exercise and pharmacologic stress with regadenoson 3. Electrocardiographic portion of the test was nondiagnostic due to inadequate heart rate. Peak heart rate achieved was 69% of predicted for age 4. Ventricular ectopy was noted 5. See MPI report MPI Conclusion Myocardial perfusion is normal. There is no evidence of ischemia or prior infarction EF 45%, normal wall motion Echocardiogram Summary: 06/20/18 Summary: 1. Left ventricle: The cavity size was normal. Wall thickness was increased in a pattern of mild LVH. Systolic function was at the lower limits of normal. The estimated ejection fraction was 50-55%. Wall motion was normal; there were no regional wall motion abnormalities. 2. Mitral valve: There was mild regurgitation. 3. Left atrium: The atrium was mildly dilated. 4. Right ventricle: The cavity size was normal. Wall thickness was normal. Systolic function was normal. 5. Pulmonary arteries: Pulmonary systolic pressure was at the upper limits of normal. PA peak pressure: 31mm Hg (S). Anesthesia Assessment and Plan Anesthesia History Personal History: No History of Anesthesia Complications Family History: No Family History of Anesthesia Complications Exercise Tolerance Exercise Tolerance: Metabolic Equivalents>4 Pertinent Negatives Pertinent Negatives: No Symptoms of GERD, No Major Cardiovascular Symptoms or Complaints, No Major Pulmonary Symptoms or Complaints and No History of CVA/TIA Cardiac & Pulmonary Exam Cardiac Exam: Normal S1/S2 Heart Sounds Pulmonary Exam: Clear Bilateral Breath Sounds Implantable Cardiac Device Does patient have a Pacemaker or an ICD?: No Airway Exam Known Difficult Airway: No Mallampati Class: 2 Mouth Opening: Normal (> 3cm) Thyromental Distance: Greater than 3 cm Neck Range of Motion: Full ROM Neck Circumference: Thick Teeth Condition: Edentulous ASA Classification ASA Score: ASA 3 Emergency Case?: No NPO Status NPO Status: NPO Clears >2 hours, Solids >8 hours Anesthesia Plan Resuscitation Status: Full Code Anesthesia Technique: General Anesthesia Airway Planned: LMA Monitors Used: Standard Monitors
[2022-07-02 08:34] VITALS: BMI 29.0
--- NOTE | 2022-07-02 08:57 | W.PM.HP.N ---
Date of service: 07/02/22 Time of Service: 08:57 Assessment and Plan Assessment and plan (1) Bladder cancer: Status: Acute Assessment and plan: Do cystoscopy to assess his current tumor status. We will be prepared to do a biopsy and fulguration if need be. History of Present Illness History of Present Illness Chief Complaint: Bladder cancer Review of Systems Narrative: No fevers or chills c/o runny nose. No vision change or dysphasia Hyperglycemia. No thyroid dysfunction Chronic shortness of breath. No hemoptysis No chest pain or palpitations No nausea, vomiting, hepatitis, ulcers, jaundice, diarrhea or constipation No seizures, strokes or peripheral neuropathy No bleeding disorders or anemia No gout PFSH All Active Problems Radiculopathy (Acute) Hematuria (Acute) Weakness of both legs (Acute) Ataxia (Acute) Runny nose (Acute) Shoulder pain, bilateral (Acute) Diarrhea (Acute) Hyperglycemia due to diabetes mellitus (Acute) Paresthesia (Acute) Accidental fall (Acute) Lumbar radiculopathy (Acute) Vertigo (Acute) COPD (chronic obstructive pulmonary disease) (Chronic) Irritation of right eye (Acute) Hip pain (Acute) Knee pain (Acute) Actinic keratoses (Acute) Situational depression (Acute) Hip pain, right (Acute) BPH (benign prostatic hyperplasia) (Chronic) Dyspnea on exertion (Acute) Edema (Acute) Pneumonia (Acute) Chest pain (Acute) Palpitations (Acute) Back pain (Acute) Smoker (Acute) Visual changes (Acute) Skin lesion (Acute) Hypertension (Chronic) Hyperlipidemia (Acute) Syncopal episodes (Chronic) Bladder cancer (Acute) Medical History Diabetes mellitus Gait instability Uses a cane to ambulate Hematuria Social History Smoking/Tobacco Use Status: Current every day Tobacco Type: cigarettes Smoking risk assessment performed?: Yes Alcohol Intake: current Alcohol Intake frequency: a few times a week Alcohol type: beer Drug use: Never Substance use type: does not use Do you feel safe at home: Yes Do you feel safe in your relationship?: Yes Meds Allergies and Home Medications Allergies Allergy/AdvReac Type Severity Reaction Status Date / Time lisinopril Allergy Verified 07/02/22 07:37 Home Medications Medication Instructions Recorded Confirmed Type atenolol 50 mg tablet 50 mg PO BID 09/11/17 07/02/22 History simvastatin 20 mg tablet 20 mg PO DAILY 09/11/17 07/02/22 History magnesium L-lactate 84 mg 84 mg PO DAILY #30 tab-caps 10/16/17 07/02/22 Rx tablet,extended release (Magtab) dulaglutide 0.75 mg/0.5 mL 0.75 device subcut DIRECTED 03/22/22 06/29/22 History subcutaneous pen injector (Trulicity) meclizine 12.5 mg tablet 12.5 tab PO PRN PRN 03/22/22 06/29/22 History omeprazole 20 mg capsule,delayed 20 cap PO BID 03/22/22 07/02/22 History release aspirin 81 mg capsule 81 mg PO DAILY 03/23/22 06/29/22 History furosemide 20 mg tablet (Lasix) 20 mg PO DAILY 03/23/22 07/02/22 History glipizide 10 mg tablet, extended 10 tab PO DAILY 03/23/22 07/02/22 History release 24 hr losartan 25 mg tablet 25 mg PO DAILY 03/23/22 07/02/22 History metformin 500 mg tablet 1,000 mg PO BID 03/23/22 07/02/22 History tamsulosin 0.4 mg capsule (Flomax) 0.4 mg PO DAILY 03/23/22 07/02/22 History finasteride 5 mg tablet 5 mg PO DAILY stop prostate 03/26/22 06/29/22 Rx bleeding #90 tabs phenazopyridine 200 mg tablet 200 mg PO TID PRN pain #10 tabs 03/26/22 06/29/22 Rx (Pyridium) Exam Narrative Exam Narrative: 82-year-old gentleman who has a history of high-grade, noninvasive urothelial cell carcinoma of the bladder. He had undergone transurethral resection in the past, but he refused intravesical treatments (BCG or chemotherapy). He presents now for surveillance cystoscopy. He is not interested in any aggressive treatments but he is willing to undergo a biopsy and fulguration if need be. Const General: cooperative and comfortable Neck Neck: supple Resp Effort & Inspection: normal respiratory effort Auscultation: clear to auscultation bilaterally Cardio Rate: regular rate Rhythm: regular rhythm GI Inspection: normal to inspection Palpation: soft Neuro General: patient alert, patient awake and patient oriented x3 Results Last Vital Signs Temp 36.6 C 07/02/22 07:20 Pulse 59 L 07/02/22 07:20 Resp 18 07/02/22 07:20 BP 137/64 07/02/22 07:20 Pulse Ox 97 07/02/22 07:20
[2022-07-02] MEDS: ceFAZolin 2 GM/50 ML BAG IVPB (09:36)
[2022-07-02] MEDS: Lidocaine 2% Jelly 6 ML SYR (09:51)
--- NOTE | 2022-07-02 09:54 | PAPNONF_PTH ---
PATIENT: Diaz Jaime LOC: [facility] U#:[id number] AGE/SX: 82/M ROOM: RE07/02/[address]: Scott Arce MD : 1940 BED: DIS: 07/02/2022 SPEC #: [id number] RECD: 07/02/22 12:58 STATUS: WESTLEY REFelice #: [id number] ANGELIQUE: 07/02/22 09:[address]: Scott Arce DEPT: [facility] Cytology RECD BY: Gris Hardy ENTERED: 07/02/22 12:58 SP TYPE: SAMANTA COATES DR: Yasmin Hilliard V Tissues: 1 - BODY FLUID CYTO(SPUTUM/URINE)[facility] Procedures: BODY FLUID CYTO(URINE/SPUTUM) Comments: [id number] (TOTAL VOLUME = 60 ml) (30 ml URINE & 30 ml CYTOLYT ADDED IN 2 CONTAINERS)
--- NOTE | 2022-07-02 10:02 | W.PM.DSUDISC ---
Date of service: 07/02/22 Time of Service: 10:03 Discharge Plan Disposition Patient Disposition: HOME Condition: Good Discharge Details Reason For Visit: cystoscopy Attending Provider: Scott Arce Primary Care Provider: Yasmin Hilliard V Home Meds and New Rx's Prescriptions: No Action aspirin 81 mg capsule 81 mg PO DAILY Label Comments: pt reports PCP told him to hold this medication furosemide [Lasix] 20 mg tablet 20 mg PO DAILY tamsulosin [Flomax] 0.4 mg capsule 0.4 mg PO DAILY losartan 25 mg tablet 25 mg PO DAILY metformin 500 mg tablet 1,000 mg PO BID phenazopyridine [Pyridium] 200 mg tablet 200 mg PO TID PRN (Reason: pain) Qty: 10 0RF simvastatin 20 MG tablet 20 mg PO DAILY atenolol 50 MG tablet 50 mg PO BID magnesium L-lactate [Magtab] 84 MG tablet extended release 84 mg PO DAILY Qty: 30 11RF Label Comments: 03/26/22 pt unaware he takes this medication finasteride 5 mg tablet 5 mg PO DAILY Qty: 90 0RF glipizide 10 mg tablet extended release 24hr 10 tab PO DAILY Label Comments: Pt reports MD put this tablet on hold on 03/16/22 TAKE 1 TABLET BY MOUTH TWICE DAILY meclizine 12.5 mg tablet 12.5 tab PO PRN PRN Label Comments: Take 1 tablet by mouth twice a day as needed omeprazole 20 mg capsule,delayed release(DR/EC) 20 cap PO BID Label Comments: TAKE 1 CAPSULE BY MOUTH TWICE DAILY Trulicity 0.75 mg/0.5 mL pen injector 0.75 device SUBCUT DIRECTED Label Comments: Inject 1 pen injector subcutaneously once a week inject subcutaneously once a week ( stay on same dosing for now) Discharge Instructions Additional Instructions: followup 3 months Activity:: Activity as Tolerated Shower/Bathe:: 24 hours Diet:: As Tolerated Discharge Orders Discharge Orders: Discharge Order (Routine); Ordered 07/02/22 Ordered By: Scott Arce DS: Diagnosis Discharge Diagnosis (1) Bladder cancer: Status: Acute
[2022-07-02 10:07] VITALS: BP 112/58; PULSE 59; RESP 16; TEMP 36; O2SAT 94
[2022-07-02] MEDS: Phenazopyridine 200 MG TAB PO (10:15)
[2022-07-02 10:30] VITALS: BP 143/66; PULSE 53; RESP 16; TEMP 36.2; O2SAT 99
--- NOTE | 2022-07-02 10:30 | ROE_ITS ---
Date of service: 07/02/22 Time of Service: 10:30 Operative Note Operative Note DATE OF PROCEDURE: 07/02/22 PRE-OP DIAGNOSIS: Bladder cancer POST-OP DIAGNOSIS: same PROCEDURE: cystoscopy SURGEON: Scott Arce ANESTHESIA TYPE: Local By Surgeon and General:No Airway Refer to Anesthesia Record ESTIMATED BLOOD LOSS: 0 PATHOLOGY: other (urine for cytology) COMPLICATIONS: None Patient was transported to: same day Patient's condition: stable Implants: none Indications: This is an 82-year-old gentleman who was originally seen with gross hematuria. He underwent cystoscopy and transurethral resection of the visible tumor. His surgical pathology demonstrated high-grade, noninvasive urothelial cell ca rcinoma of the bladder. The patient was not interested in having intravesical BCG or chemotherapy. He presents now for surveillance cystoscopy. Findings: No visible tumor Procedure Description: The patient was brought to the operating room on 07/02/2022. After successful induction of general anesthesia without intubation, he was placed in the dorsal lithotomy position. His genitalia was prepped and draped. 2% Xylocaine jelly was instilled into the urethra to act as a local anesthetic. A 17 Lebanese rigid cystoscope was passed through the urethra into the bladder. The urethra and bladder were inspected with a 30 and a 70 degree lens. The pendulous, bulbar and membranous urethra's appeared normal with no strictures. The prostatic urethra showed lateral lobe enlargement but no papillary lesions were seen on the prostatic mucosa. The bladder neck was entered and the bladder mucosa was inspected. Urine from the bladder was collected and sent to pathology for cytology examination. Both ureteral orifices appeared normal with no blood coming from either side. Up towards the dome of the bladder, there was a necrotic area of previous transurethral resection. No visible tumor was seen in the site. No additional papillary or nodular lesions were seen. With no obvious tumor visible, no transurethral resection was performed. The bladder was emptied and the cystoscope was withdrawn. The patient tolerated this procedure with no complications.
--- NOTE | 2022-07-02 11:06 | W.ANESPOSTOP ---
Postoperative Evaluation Date, Time and Location Date Performed: 07/02/22 Time Performed: 10:45 Patient Location: Day Surgery Unit Vital Signs Most Recent Imported Vital Signs: Most Recent Vital Signs Temp Pulse Resp BP Pulse Ox 36.2 C L 53 L 16 143/66 H 99 07/02/22 10:30 07/02/22 10:30 07/02/22 10:30 07/02/22 10:30 07/02/22 10:30 Pain Score Most Recent Pain Score: Most Recent Pain Score Pain Level 0 07/02/22 10:30 Assessment Mental Status: Awake (Alert & Oriented to Patient Baseline) Airway and Respiratory Function: Patent airway with normal (patient baseline) respiratory exam Cardiovascular Function: Hemodynamically Stable Hydration Status: Adequately Hydrated Nausea & Vomiting: No Nausea or Vomiting Pain: Pt. Denies Any Pain Peripheral Nerve Block: Patient did not receive a nerve block
== END 2022-07-02 10:50 | disposition home or self-care (01) ==
PROVIDERS: PCP Family Medicine; Visit Provider Urology
PROC: 0TBB8ZZ Excision of Bladder, Via Natural or Artificial Opening Endoscopic (ICD-10-PCS; CPT 52000; principal; 2022-07-02 08:45)
DX: Z08 Encounter for follow-up examination after completed treatment for malignant neoplasm (principal); Z85.51 Personal history of malignant neoplasm of bladder
CPT/HCPCS: 52000; 88104; J0690; J1100; J2405

== ENCOUNTER 2023-01-10 18:31 | Outpatient (REF) | payer MEDICARE, SELFPAY ==
[2023-01-10 19:48] LABS: Anion Gap 8.4 mmol/L (3-11); BUN 23 mg/dL (7-18); CO2 27.6 mmol/L (21.0-32.0); CREATININE 1.2 mg/dL (0.70-1.30); Calcium 9.4 mg/dL (8.5-10.1); Chloride 102 mmol/L (98-107); Estimated GFR 60.38 (mL/min/1.73m2); Glucose 134 mg/dL (74-106); Potassium 4.7 mmol/L (3.5-5.1); Sodium 138 mmol/L (136-145)
== END 2023-01-10 18:32 | disposition home or self-care (01) ==
LOC: NCHCN 18:31
PROVIDERS: PCP Family Medicine; Visit Provider Family Medicine
DX: I10 Essential (primary) hypertension (principal)
CPT/HCPCS: 80048

== ENCOUNTER 2023-05-23 17:14 | Outpatient (REF) | payer MEDICARE, SELFPAY ==
[2023-05-23 15:56] LABS: HCT 43.3 % (40.0-50.0); HGB 14.5 g/dL (13.5-17.5); MCH 30.2 pg (27.0-33.0); MCHC 33.5 % (32.0-36.0); MCV 90 fL (80-95); MPV 10.8 fL (8.0-11.0); Platelet Count 369 10^3/uL (130-400); RDW 12.3 % (11.8-14.1); RDW-SD 40.8 fL; WBC 10.87 10^3/uL (4.4-10.8)
[2023-05-23 16:29] LABS: ALT 34 U/L (16-63); AST 22 U/L (15-37); Albumin 3.6 g/dL (3.4-5.0); Alkaline Phosphatase 83 U/L (46-116); Anion Gap 6.2 mmol/L (3-11); BUN 25 mg/dL (7-18); Bilirubin, Total 0.2 mg/dL (0.2-1.0); CO2 26.8 mmol/L (21.0-32.0); CREATININE 1.2 mg/dL (0.70-1.30); Chloride 103 mmol/L (98-107); Glucose 225 mg/dL (74-106); Sodium 136 mmol/L (136-145); TSH (W/Ref FT4) 1.17 uIU/mL (0.36-3.74); Total Protein 7.5 g/dL (6.4-8.2)
== END 2023-05-23 17:15 | disposition home or self-care (01) ==
LOC: NCHCN 17:14
PROVIDERS: PCP Family Medicine; Visit Provider Family Medicine
DX: R53.83 Other fatigue (principal); E11.65 Type 2 diabetes mellitus with hyperglycemia
CPT/HCPCS: 80053; 85027; 84443

== ENCOUNTER 2024-06-04 13:59 | Emergency (ER) | payer MEDICARE, SELFPAY ==
[2024-06-04 14:03] VITALS: PULSE 80; RESP 16; TEMP 36.6
--- NOTE | 2024-06-04 14:44 | ED.GENADUL_ITS ---
Discharge Plan Disposition Patient Disposition: Home Condition: Stable Discharge Details Chief Complaint: EarProblem Clinical Impression: Acute hearing loss of both ears, Ear barotrauma Primary Care Provider: Yasmin Hilliard V ED Provider: Howard Soler Home Meds and New Rx's Prescriptions: No Action aspirin 81 mg capsule 81 mg PO DAILY Patient Comments: pt reports PCP told him to hold this medication furosemide [Lasix] 20 mg tablet 20 mg PO DAILY tamsulosin [Flomax] 0.4 mg capsule 0.4 mg PO DAILY losartan 25 mg tablet 25 mg PO DAILY metformin 500 mg tablet 1,000 mg PO BID simvastatin 20 MG tablet 20 mg PO DAILY atenolol 50 MG tablet 50 mg PO BID magnesium L-lactate [Magtab] 84 MG tablet extended release 84 mg PO DAILY Qty: 30 11RF Patient Comments: 03/26/22 pt unaware he takes this medication finasteride 5 mg tablet 5 mg PO DAILY Qty: 90 0RF glipizide 10 mg tablet extended release 24hr 10 tab PO DAILY Patient Comments: Pt reports MD put this tablet on hold on 03/16/22 TAKE 1 TABLET BY MOUTH TWICE DAILY meclizine 12.5 mg tablet 12.5 tab PO PRN PRN Patient Comments: Take 1 tablet by mouth twice a day as needed omeprazole 20 mg capsule,delayed release(DR/EC) 20 cap PO BID Patient Comments: TAKE 1 CAPSULE BY MOUTH TWICE DAILY Trulicity 0.75 mg/0.5 mL pen injector 0.75 device SUBCUT DIRECTED Patient Comments: Inject 1 pen injector subcutaneously once a week inject subcutaneously once a week ( stay on same dosing for now) Discharge Instructions Instructions: Hearing Loss in Adults, Eustachian Tube Problems (DC) Additional Instructions: Please follow-up with audiology. Medication reconciliation could not be performed today. Please be sure to take your medications as prescribed. Please discuss medication dosing with your primary care physician. Please contact your primary care physician to arrange follow-up. Return to the ER immediately for any worsening or new concerning symptoms. Referrals: Yasmin Hilliard MD [Primary Care Provider] - Sadia Irby [ [facility] STAFF PHYSICIAN] - [facility] General Mode of arrival: ambulatory . Date/Time Provider Initiated Documentation: 06/04/24 14:31 . Limitations to Documentation: no limitations . Information obtained by: patient . HPI Narrative: 84-year-old male with chief complaint of hearing loss. Patient notes he was working on a car battery and it sparked and exploded and he had sudden loss of hearing in his bilateral ears. He does note some ringing in his ear when he rotates his head quickly. No associated headache. No visual changes. No vasquez. He did not feel as though he was electrocuted during the episode. Related Data Home Medications ?Medication ?Instructions ?Recorded ?Confirmed atenolol 50 mg tablet 50 mg PO BID 09/11/17 06/04/24 simvastatin 20 mg tablet 20 mg PO DAILY 09/11/17 06/04/24 magnesium L-lactate 84 mg 84 mg PO DAILY #30 tab-caps 10/16/17 06/04/24 tablet,extended release (Magtab) dulaglutide 0.75 mg/0.5 mL 0.75 device subcut DIRECTED 03/22/22 06/04/24 subcutaneous pen injector (Trulicity) meclizine 12.5 mg tablet 12.5 tab PO PRN PRN 03/22/22 06/04/24 omeprazole 20 mg capsule,delayed 20 cap PO BID 03/22/22 06/04/24 release aspirin 81 mg capsule 81 mg PO DAILY 03/23/22 06/04/24 furosemide 20 mg tablet (Lasix) 20 mg PO DAILY 03/23/22 06/04/24 glipizide 10 mg tablet, extended 10 tab PO DAILY 03/23/22 06/04/24 release 24 hr losartan 25 mg tablet 25 mg PO DAILY 03/23/22 06/04/24 metformin 500 mg tablet 1,000 mg PO BID 03/23/22 06/04/24 tamsulosin 0.4 mg capsule (Flomax) 0.4 mg PO DAILY 03/23/22 06/04/24 finasteride 5 mg tablet 5 mg PO DAILY stop prostate 03/26/22 06/04/24 bleeding #90 tabs Previous Rx's ?Medication ?Instructions ?Recorded magnesium L-lactate 84 mg 84 mg PO DAILY #30 tab-caps 10/16/17 tablet,extended release (Magtab) finasteride 5 mg tablet 5 mg PO DAILY stop prostate 03/26/22 bleeding #90 tabs Allergies Allergy/AdvReac Type Severity Reaction Status Date / Time lisinopril Allergy Mild Unknown Verified 06/04/24 14:11 General Stated Complaint: EarProblem ELVIA: 4 Review of Systems All systems reviewed & are unremarkable except as noted in HPI and below ENT Ears, Nose, Mouth, and Throat: Reports as per HPI Exam Const General: cooperative and no acute distress HENMT Head: normocephalic and atraumatic Ears: external ears normal, TM's normal bilaterally and mastoids normal General nose exam: external nose normal Face and sinus: normal facial exam Mouth: moist mucous membranes Throat: posterior oropharynx normal Eyes Conjunctivae: normal conjunctivae Sclera: normal sclerae EOM: EOM intact bilaterally Course Vital Signs Vital signs: Vital Signs Temperature 36.6 C 06/04/24 14:03 Pulse 80 06/04/24 14:03 Respiratory Rate 16 06/04/24 14:03 Temperature 36.6 C 06/04/24 14:03 Temperature Source Tympanic 06/04/24 14:03 Pulse 80 06/04/24 14:03 Respiratory Rate 16 06/04/24 14:03 Blood Pressure Position Sitting 06/04/24 14:03 Oxygen Delivery Method Room Air 06/04/24 14:03 Oxygen Flow Rate 0 06/04/24 14:03 Medical Decision Making 84-year-old male with history of chronic hearing loss, here with acute worsening of his hearing after carbide air exploded. Suspect barotrauma injury. No signs of perforated tympanic membrane. Plan for supportive care and follow-up with audiology. Quality:SDOH Health Related Social Needs: No Data to Display PFSH All Active Problems (Updated 06/04/24 @ 14:52 by Howard Soler MD) Ear barotrauma (Acute) Acute hearing loss of both ears (Acute) Radiculopathy (Acute) Hematuria (Acute) Weakness of both legs (Acute) Ataxia (Acute) Runny nose (Acute) Shoulder pain, bilateral (Acute) Diarrhea (Acute) Hyperglycemia due to diabetes mellitus (Acute) Paresthesia (Acute) Accidental fall (Acute) Lumbar radiculopathy (Acute) Vertigo (Acute) COPD (chronic obstructive pulmonary disease) (Chronic) Irritation of right eye (Acute) Hip pain (Acute) Knee pain (Acute) Actinic keratoses (Acute) Situational depression (Acute) Hip pain, right (Acute) BPH (benign prostatic hyperplasia) (Chronic) Dyspnea on exertion (Acute) Edema (Acute) Pneumonia (Acute) Chest pain (Acute) Palpitations (Acute) Back pain (Acute) Smoker (Acute) Visual changes (Acute) Skin lesion (Acute) Hypertension (Chronic) Hyperlipidemia (Acute) Syncopal episodes (Chronic) Bladder cancer (Acute) Medical History Diabetes mellitus Hematuria Gait instability Uses a cane to ambulate Social History Smoking/Tobacco Use Status: Current every day Tobacco Type: cigarettes Smoking risk assessment performed?: Yes Alcohol Intake: current Alcohol Intake frequency: a few times a week Alcohol type: beer Drug use: Never Substance use type: does not use Do you feel safe at home: Yes Do you feel safe in your relationship?: Yes
== END 2024-06-04 15:48 | disposition home or self-care (01) ==
LOC: ER 14:52
PROVIDERS: Emergency Provider Student in an Organized Health Care Education/Training Program; PCP Family Medicine
DX: H91.93 Unspecified hearing loss, bilateral (principal); T70.0XXA Otitic barotrauma, initial encounter
CPT/HCPCS: 99281; 99282

== ENCOUNTER 2024-06-30 19:26 | Outpatient (REF) | payer MEDICARE, SELFPAY ==
[2024-06-30 19:38] LABS: Hemoglobin A1C 8.2 % (<5.7)
[2024-06-30 19:40] LABS: ALT 35 U/L (16-63); AST 17 U/L (15-37); Albumin 3.9 g/dL (3.4-5.0); Alkaline Phosphatase 92 U/L (46-116); Bilirubin, Direct 0.1 mg/dL (0.0-0.2); Bilirubin, Total 0.38 mg/dL (0.2-1.0); Total Protein 7.5 g/dL (6.4-8.2)
[2024-06-30 20:03] LABS: Ferritin 124 ng/mL (26-388)
== END 2024-06-30 19:27 | disposition home or self-care (01) ==
LOC: NCHCN 19:26
PROVIDERS: PCP Family Medicine; Visit Provider Family Medicine
DX: E11.9 Type 2 diabetes mellitus without complications (principal)
CPT/HCPCS: 80076; 82728; 83036

== ENCOUNTER 2025-01-07 17:09 | Outpatient (REF) | payer MEDICARE, SELFPAY ==
[2025-01-07 19:18] LABS: Bilirubin Negative (Negative); Blood Small (Negative); Clarity Clear (Clear); Glucose Negative (Negative); HCT 43.7 % (40.0-50.0); HGB 14.3 g/dL (13.5-17.5); Ketones Negative (Negative); Leukocyte Esterase Negative (Negative); MCH 30.6 pg (27.0-33.0); MCHC 32.7 % (32.0-36.0); MCV 94 fL (80-95); MPV 10.3 fL (8.0-11.0); Nitrite Negative (Negative); Platelet Count 335 10^3/uL (130-400); RBC 4.67 10^6/uL (4.36-5.78); RDW 12.9 % (11.8-14.1); RDW-SD 44.2 fL; Urobilinogen 0.2 mg/dL (Up to 0.2); WBC 11.33 10^3/uL (4.4-10.8); pH 6.5 (5-8)
[2025-01-07 19:24] LABS: Bacteria Negative HPF (Negative); C & S Indicated? No; Crystals Negative HPF (Negative); Epithelial Cells Rare HPF (Negative); Mucus Negative (Negative); WBC Negative HPF (0-5)
[2025-01-07 19:34] LABS: ALT 25 U/L (16-63); AST 16 U/L (15-37); Albumin 3.8 g/dL (3.4-5.0); Alkaline Phosphatase 101 U/L (46-116); Anion Gap 9.6 mmol/L (3-11); BUN 19 mg/dL (7-18); Bilirubin, Total 0.3 mg/dL (0.2-1.0); CO2 26.4 mmol/L (21.0-32.0); CREATININE 1.1 mg/dL (0.70-1.30); Calcium 8.9 mg/dL (8.5-10.1); Chloride 105 mmol/L (98-107); Estimated GFR 66.19 (mL/min/1.73m2); Glucose 179 mg/dL (74-106); Potassium 4.3 mmol/L (3.5-5.1); Sodium 141 mmol/L (136-145)
[2025-01-07 19:35] LABS: Hemoglobin A1C 7.3 % (<5.7)
== END 2025-01-07 17:10 | disposition home or self-care (01) ==
LOC: NCHCN 17:09
PROVIDERS: PCP Family Medicine; Visit Provider Family Medicine
DX: N32.9 Bladder disorder, unspecified (principal); E11.65 Type 2 diabetes mellitus with hyperglycemia; Z86.2 Personal history of diseases of the blood and blood-forming organs and certain disorders involving the immune mechanism; I10 Essential (primary) hypertension
CPT/HCPCS: 80053; 85027; 81003; 81015; 83036